=== PATIENT | female | born 1935 | race Caucasian/White ===

== ENCOUNTER 2019-10-05 12:16 | Emergency (ER) | payer MEDICARE, SELFPAY ==
[2019-10-05 12:17] VITALS: BP 154/134; PULSE 102; RESP 22; TEMP 36.7; O2SAT 97; BMI 22.1
--- NOTE | 2019-10-05 12:47 | CT_ITS ---
STUDY: CT BRAIN WITHOUT CONTRAST REASON FOR EXAM: Female, 84 years old. FALL THIS AM/STRUCK HEAD/CONFUSION/LT EYE BRUISING RADIATION DOSAGE (If Supplied By Facility): CTDIvol = ( 44.99 ) mGy, DLP = ( 812.98 ) mGycm TECHNIQUE: Transaxial CT imaging of the brain was performed without administration of intravenous contrast material. Individualized dose optimization techniques were used for this CT. COMPARISON: No relevant priors. FINDINGS: Normal soft tissue structures. Normal calvarium. There is mild cerebral atrophy with widening of the extra-axial spaces and ventricular dilatation. There are areas of decreased attenuation within the white matter tracts of the supratentorial brain, consistent with microvascular disease changes. There are small punctate calcifications of the basal ganglia which are seen in the aging brain as a normal variant. Normal brainstem. Normal cerebellum. There is no intracranial hemorrhage. There are no findings of an acute ischemic infarction. There is atherosclerotic plaque formation of the vertebral arteries and cavernous portions of the internal carotid arteries bilaterally. Normal visualized paranasal sinuses. CT/Brain/Head without Contrast IMPRESSION: Chronic involutional changes of the brain. Electronically Signed: Major Munoz, at 13:37 EDT , Service support ,
[2019-10-05 12:56] VITALS: BP 153/111
--- NOTE | 2019-10-05 13:10 | RAD_ITS ---
STUDY: X-RAY - RIGHT HAND REASON FOR EXAM: Female, 84 years old. PT FELL THIS AM. STRUCK HEAD. BRUISING OVER LEFT EYE. SKIN TEARS TO ANTERIOR RIGHT HAND AND AGUIRRE. PER [facility]CF, SOME CONFUSION, PT UNABLE TO HOLD FINGERS IN POSITION FOR LATERAL PROJECTION TECHNIQUE: 3 view(s) of the hand. COMPARISON: None. FINDINGS: Normal radiocarpal articulation. Normal distal radioulnar joint. Normal visualized carpal bones. Normal carpal articulations Normal carpometacarpal articulation of the thumb. Normal second through fifth carpometacarpal joints. The mineralization of the metacarpal bones. Normal metacarpophalangeal joint of the thumb. Normal interphalangeal joint of the thumb. Normal proximal and distal phalanges of the thumb. Normal metacarpophalangeal joints of the second through fifth fingers. There is diffuse articular joint space narrowing of the proximal and distal interphalangeal joints of the second through fifth fingers, but without erosive changes or periarticular soft tissue swelling. Normal phalanges of the second through fifth fingers. The soft tissue structures are unremarkable. RAD/Hand Min 3 Views IMPRESSION: Degenerative joint disease of the hand, as described above. Electronically Signed: Major Munoz, at 13:49 EDT , Service support ,
[2019-10-05 13:31] LABS: Prothrombin Time (Protime)PT. 47.3 SECONDS (11.7-14.9)
[2019-10-05 13:32] LABS: Anion Gap 7 (5-15); BUN 10 mg/dL (7-18); BUN/Creat Ratio 13.3 RATIO (10-20); Calcium,Total 9.7 mg/dL (8.5-10.1); Chloride 103 mmol/L (98-107); Creatinine, Serum 0.75 mg/dL (0.55-1.02); EST Glomerular Filtration Rate 78 mL/min (>60); Est Glom Filt Rate - Afr Amer 94 mL/min (>60); Glucose 156 mg/dL (74-106); Potassium 4.1 mmol/L (3.5-5.1); Sodium Level 136 mmol/L (136-145)
[2019-10-05 13:36] LABS: International Normalized Ratio 5.1
--- NOTE | 2019-10-05 14:04 | ED.DCSUM_ITS ---
- ER Visit Summary Date of Service: 10/05/19 Chief Complaint: Fall History of Present Illness: The patient is a [address] Jose Tavares. She is on Coumadin for a DVT. She reports that this morning she had slippery shoes on and tripped while going to get my walker. She did hit her head. She did h ave a loss of consciousness. She denies any neck, back, shoulder, wrist, or hip pain. She does have a skin tear to her right hand that she complains of mild pain there. She says her tetanus is up-to-date. Physical Examination: Vitals: Stable. Afebrile. Head: Hematoma to the upper left forehead. No laceration. Neck: No vertebral tenderness. Full ROM without difficulty. Cleared by NEXUS criteria. Back: No vertebral tenderness. General: A&O x 2. NAD. Cardiovascular exam: Regular rate and rhythm, no murmur, rub or gallop. Respiratory exam: Chest nontender. No crepitus. Clear to auscultation bilaterally. No wheezes or stridor. Abdominal exam: Soft, nontender, nondistended, normal bowel sounds. No pain in RUQ or LUQ specifically. No peritoneal signs. Extremity: 2 cm skin tear to the thenar eminence of her right hand. There is a very small skin tear to the lateral portion of her distal right forearm. No pain with range of motion. Test Results: INR is 5.1. Chem-7 shows a glucose 156. Clinical Impression(s) from Imaging Studies Brain CT 10/05/19 12:47 IMPRESSION: Chronic involutional changes of the brain. Electronically Signed: Major Munoz, at 13:37 EDT , Service support , Hand X-Ray 10/05/19 13:10 IMPRESSION: Degenerative joint disease of the hand, as described above. Electronically Signed: Major Munoz, at 13:49 EDT , Service support , Emergency Department Course and Treatment: Patient refused pain medications. She is resting comfortably. Patient was straight cathed for urine had greater than 800 cc of urine present. She reports that she used a cath herself. Treatment Plan: The patient was discussed with . she will be instructed to hold her Coumadin for 2 days. She will have a Doyle catheter placed prior to leaving. Return to the emergency department for any worsening symptoms. Disposition: To home in improved and stable condition. Impression: 1. Fall. 2. Supratherapeutic INR. 3. Skin tear right hand. 4. Urinary retention. 5. Hematoma to forehead. This note was generated with [employer] software. It may contain incorrect words, spelling, and punctuation that were not noted in review of the chart prior to signing <Kieran Valerio - Last Filed: 10/05/19 15:28> - ER Visit Summary Date of Service: 10/05/19 Patient was checked out to me to check urinalysis results. Urinalysis shows 0 white blood cells, 0 red blood cells, negative leukocyte, negative nitrite. She will be discharged back to the group home. Advised return to ED for worsening complaints. This note was generated with [employer] software. It may contain incorrect words, spelling, and punctuation that were not noted in review of the chart prior to signing <Mely Dumas - Last Filed: 10/05/19 16:14> ED Disposition <Kieran Valerio - Last Filed: 10/05/19 15:28> <Mely Dumas - Last Filed: 10/05/19 16:14> - Plan for ED Patient: Instructions: ED Retention Urinary Female Prescriptions: Cephalexin [Keflex] 500 mg PO Q12 #14 cap Prescription Printed Referrals: Jose Bashir MD [Primary Care Provider] - 3-5 Days Additional Instructions: Do not take your Coumadin for the next 2 days.
[2019-10-05 14:14] LABS: Absolute Lymphocyte Count 1.69 X10^3/uL (0.83-4.51); Absolute Neutrophil Count 2.6 X10^3/uL (2.0-7.7); Basophil# 0.05 X10^3/uL; Eosinophil# 0.17 X10^3/uL; Eosinophils% 3.5 % (0-5); Hematocrit 33.4 % (37-47); Hemoglobin 11.1 g/dL (12.0-15.0); Lymphocyte # 1.69 X10^3/ul (4.0); Lymphocyte % 34.6 % (19-41); Mean Corp Hgb Conc 33.2 g/dL (32-36); Mean Corpuscular Hgb 33.1 pg (27.0-32.0); Mean Corpuscular Volume 99.7 fL (81-99); Mean Platelet Vol. 11.9 fl (6.2-12.0); Monocyte# 0.38 X10^3/uL; Monocyte% 7.8 % (0-10); NRBC Flagged by Analyzer 0 % (0-5); Neutrophil # 2.59 X10^3/uL (2.7-7.7); Neutrophil % 52.9 % (47-70); Platelet Count 250 K/mm3 (150-450); RBC Distribution Width CV 13.5 % (11.6-14.6); RBC Distribution Width SD 49.5 fl (35.1-43.9); Red Blood Count 3.35 M/mm3 (4.2-5.4); White Blood Count 4.9 K/mm3 (4.4-11.0)
[2019-10-05 14:36] VITALS: BP 142/100; PULSE 90; RESP 18; O2SAT 99
[2019-10-05 14:38] LABS: Mucous, Urine 0 SEEN /hpf (<or=2+); Red Blood Cells-Urine 0 SEEN /hpf (0-5); White Blood Cells 0 SEEN /hpf (0-5)
[2019-10-05 14:58] LABS: Color, Urine Yellow (Yellow); Glucose, Dipstick Normal (Normal); Ketone-Dipstick Negative (Negative); Leukocyte Esterase-Dipstick Negative /ul (Negative); Nitrite-Dipstick Negative (Negative); Occult Blood-Urine Negative /ul (Negative); Protein-Dipstick Negative (Negative); Specific Gravity, Urine 1.015 (1.002-1.030); Urine Bilirubin Dipstick Negative (Negative); Urine Clarity Sl. Cloudy (Clear); Urine Urobilinogen Normal (Normal)
[2019-10-05 16:10] LABS: Bacteria 4+ /hpf (None Seen)
[2019-10-05 16:11] LABS: Squamous Epithelial Cells - UA 0-5 SEEN /hpf (5-10)
--- NOTE | 2019-10-05 16:22 | NURSING ---
CALLED PHYSICANS FOR TRANSPORT. ETA IS 90 MIN
[2019-10-05 16:33] VITALS: BP 138/97; PULSE 89; RESP 25; O2SAT 99
--- NOTE | 2019-10-05 16:38 | ED.RN ---
Report called to [facility], spoke with Cassidy. Updated on patients diagnosis, new orders, catheter, and to hold Coumadin for 2 days. also updated on ETA for patient getting back to their facility.
== END 2019-10-05 17:43 | disposition home or self-care (01) ==
PROVIDERS: Emergency Provider Emergency Medicine; PCP Family Medicine
DX: S00.83XA Contusion of other part of head, initial encounter (principal); S61.411A Laceration without foreign body of right hand, initial encounter; R33.9 Retention of urine, unspecified; R79.1 Abnormal coagulation profile; E11.9 Type 2 diabetes mellitus without complications; I10 Essential (primary) hypertension; Z86.718 Personal history of other venous thrombosis and embolism; Z79.01 Long term (current) use of anticoagulants; Z79.4 Long term (current) use of insulin; Z79.899 Other long term (current) drug therapy; W01.0XXA Fall on same level from slipping, tripping and stumbling without subsequent striking against object, initial encounter; Y93.01 Activity, walking, marching and hiking; Y92.009 Unspecified place in unspecified non-institutional (private) residence as the place of occurrence of the external cause; Y99.8 Other external cause status
CPT/HCPCS: 51702; 70450; 73130; 80048; 81001; 85025; 85610; 99285; J7030; P9612; A4216

== ENCOUNTER → 2019-10-14 15:05 | Outpatient (CLI) | payer MEDICARE, SELFPAY ==
[2019-10-05 12:17] VITALS: BMI 22.1
--- NOTE | 2019-10-14 15:13 | CT_ITS ---
STUDY: CT RIGHT KNEE WITHOUT CONTRAST REASON FOR EXAM: Female, 84 years old. Fall. Pain. RADIATION DOSAGE (If Supplied By Facility): CTDIvol = ( 15.35 ) mGy, DLP = ( 626.24 ) mGycm TECHNIQUE: Transaxial images were obtained through the right knee and without intravenous contrast. Sagittal and coronal images were reconstructed. Individualized dose optimization techniques were used for this CT. COMPARISON: None. FINDINGS: There is a moderate-sized hemorrhagic joint effusion. There is a minimally depressed fracture of the medial tibial plateau. The remainder the visualized osseous structures are intact. There is no dislocation. There are vascular calcifications noted. CT/Extremity Lower without Contra IMPRESSION: Minimally depressed fracture of the medial tibial plateau. Moderate sized hemorrhagic joint effusion. Electronically Signed: Agustín Tomas, at 15:43 EDT Tel , Service support ,
== END ==
PROVIDERS: PCP Family Medicine; Referring Provider Physician Assistant; Visit Provider Physician Assistant
DX: M25.561 Pain in right knee (principal); M17.11 Unilateral primary osteoarthritis, right knee; S80.01XA Contusion of right knee, initial encounter
CPT/HCPCS: 73700

== ENCOUNTER 2020-02-28 06:26 | Emergency (ER) | payer MEDICARE, SELFPAY ==
--- NOTE | 2020-02-28 | CT_ITS ---
HISTORY: FALL HITTING HEAD THIS AM ADDITIONAL HISTORY: None provided. COMPARISON: 10/05/2019 EXAMINATION/TECHNIQUE: CT Head or Brain W/O Contrast Injection. Axial, coronal and sagittal images. Number of images including paperwork: 245. A radiation dose optimization technique was used for this scan. FINDINGS: BRAIN: No acute hemorrhage or mass. No definite acute infarct; MRI more sensitive. White matter hypodensity is nonspecific but most commonly seen with chronic ischemic changes. Generalized atrophy. VENTRICULAR SYSTEM: No hydrocephalus. PARANASAL SINUSES AND MASTOIDS: No air-fluid level in the imaged extent. Minimal mucosal thickening. ORBITS: Unremarkable imaged extent. SKELETON AND SOFT TISSUES: Calvarium intact. Left frontal scalp hematoma. ASPECTS score: Not applicable. CT/Brain/Head without Contrast IMPRESSION: No acute intracranial abnormality. Chronic involutional and white matter changes. Individualized dose optimization techniques were used for this CT. at 0728 Reported and signed by: Angela Curtis MD Electronically Signed: Angela Curtis MD at 7:28 EST Tel , Service support ,
[2020-02-28 06:27] VITALS: PULSE 83; RESP 16; TEMP 36.6; O2SAT 97; BMI 24.4
[2020-02-28 06:33] VITALS: BP 164/81
--- NOTE | 2020-02-28 06:53 | ED.DCSUM_ITS ---
- ER Visit Summary Date of Service: 02/28/20 Chief Complaint: Fall History of Present Illness: The patient is a 84 F presenting after fall. Patient states her walker caught under her recliner and she lost her balance and fell. She hit her head on the floor. She denies loss of consciousness. She is on Coumadin. She was able to get up after the fall and ambulate. She denies other complaints. Physical Examination: Vitals are stable. Patient is afebrile. Alert no acute distress. HEENT exam left scalp hematoma Neck is nontender Lungs are clear and equal bilaterally. Heart is regular rate and rhythm. Abdomen is soft nontender nondistended. Extremities are unremarkable. Skin is warm and dry. No focal neurologic deficit. Remainder of exam is unremarkable. Emergency Department Course and Treatment: CT head is pending at this time and will be checked out to the oncoming physician. Disposition: pending Impression: Closed head injury, mechanical fall This note was generated with [employer] dictation software. It may contain incorrect words, spelling, and punctuation that were not noted in review of the chart prior to signing ED Disposition - Plan for ED Patient: Referrals: Jose Bashir MD [Primary Care Provider] -
[2020-02-28 07:16] LABS: International Normalized Ratio 3.4; Prothrombin Time (Protime)PT. 33.9 SECONDS (11.7-14.9)
[2020-02-28 07:48] VITALS: BP 164/78; PULSE 77; RESP 16; O2SAT 98
== END 2020-02-28 08:03 | disposition intermediate care facility (04) ==
PROVIDERS: Emergency Provider Emergency Medicine; PCP Family Medicine
DX: S00.03XA Contusion of scalp, initial encounter (principal); Z79.01 Long term (current) use of anticoagulants; W18.30XA Fall on same level, unspecified, initial encounter; Y93.89 Activity, other specified; Y92.008 Other place in unspecified non-institutional (private) residence as the place of occurrence of the external cause; Y99.8 Other external cause status
CPT/HCPCS: 70450; 85610; 99284

== ENCOUNTER → 2020-06-07 15:58 | Outpatient (CLI) | payer MEDICARE, SELFPAY ==
--- NOTE | 2020-06-07 16:00 | MRI_ITS ---
STUDY: MRI LUMBAR SPINE WITHOUT CONTRAST REASON FOR EXAM: Female, 85 years old. Chronic back pain, compression fx TECHNIQUE: Standardized fat and water weighted pulse sequences were obtained in the sagittal and axial planes. COMPARISON: X-ray 04/04/2020 FINDINGS: T12-L1: Mild broad disc protrusion produces mild spinal stenosis and moderate bilateral neural foraminal stenosis. Normal lumbar lordosis. Mild dextroscoliosis of the upper lumbar spine and mild levoscoliosis of lower lumbar spine. Normal conus medullaris that terminates at the L1. Subacute moderate compression fractures of L1 and L2 with mild marrow edema. 2 mm retropulsion of the superior endplate of L1 and L2 into the spinal canal producing mild spinal stenosis. L1-2: Mild bilobed disc protrusion produces mild spinal stenosis and mild bilateral neural foraminal stenosis. L2-3: Mild bilateral facet hypertrophy and moderate ligament flavum hypertrophy. 5 mm retrolisthesis of L2 on L3 with a mild bilobed disc protrusion produces severe spinal stenosis with severe bilateral lateral recess stenosis with effacement of the L3 nerve roots bilaterally and moderate bilateral neural foraminal stenosis. L3-4: Severe bilateral facet hypertrophy and moderate ligament flavum hypertrophy. 5 mm of anterolisthesis of L3 on L4 with a mild bilobed disc protrusion produces moderate spinal stenosis and moderate bilateral neural foraminal stenosis. L4-5: Mild bilateral facet hypertrophy and moderate ligament flavum hypertrophy. Moderate broad disc protrusion produces moderate spinal stenosis and moderate bilateral neural foraminal stenosis. L5-S1: Moderate bilateral facet hypertrophy and ligament flavum hypertrophy. 2 mm of anterolisthesis of L5 on S1 with a mild broad disc protrusion produces mild spinal stenosis and moderate bilateral neural foraminal stenosis. Normal visualized sacral ala. 4 cm abdominal aortic aneurysm. MRI/Spine Lumbar (Routine) IMPRESSION: 1. Subacute moderate compression fractures of L1 and L2 with marrow edema and 2 mm retropulsion of the superior endplate of L1 and L2 into the spinal canal producing mild spinal stenosis. 2. Mild S-shaped scoliosis with diffuse degenerative disc disease as described above. 3. 4 cm abdominal aortic aneurysm. Electronically Signed: Hardeep Ponce MD at 18:12 EDT Tel , Service support ,
== END ==
LOC: MRI 16:00
PROVIDERS: PCP Family Medicine; Referring Provider Orthopaedic Surgery; Visit Provider Orthopaedic Surgery
DX: M47.816 Spondylosis without myelopathy or radiculopathy, lumbar region (principal)
CPT/HCPCS: 72148

== ENCOUNTER 2020-10-03 07:01 | Day surgery (SDC) | payer MEDICARE, MEDICAID, SELFPAY ==
[2020-08-10 15:14] VITALS: BMI 24.4
[2020-10-03 07:35] VITALS: BP 171/84; PULSE 75; RESP 16; TEMP 36.2; O2SAT 98; BMI 27.0
[2020-10-03] MEDS: Vancomycin IV 1,000 MG/200 ML BAG 200 MG IV (07:44)
[2020-10-03] MEDS: Lactated Ringers 1,000 ML 100 ML IV (07:44)
--- NOTE | 2020-10-03 08:37 | PCM.OPRPT ---
Problems Associated Problem List Diagnoses (1) Urinary retention: (2) Neurogenic bladder: Report of Operation Date of Procedure: 10/03/20 Pre-Operative Diagnosis: Urinary retention, neurogenic bladder Post-Operative Diagnosis: Same Surgery/Procedure Performed:: InterStim stage I Surgeon: Kelly Cornell Type of Anesthesia: MAC Description of Procedure: The patient is an 85-year-old female with urinary retention who was evaluated in the office with cystoscopy and urodynamics and found to have a neurogenic bladder. She now presents for InterStim trial. Informed consent was obtained. The patient was taken to the operating room and placed in a prone position on the operating room table. She was appropriately secured to the table and padded in dependent areas. Anesthesia monitored the head, neck, airway, IV access and vital signs throughout the case. Once anesthesia was appropriately administered, the patient was prepped and draped in usual sterile fashion. Using fluoroscopy, the S3 foramen was identified. The skin overlying this area was infiltrated with lidocaine, and the left S3 foramen was intubated with a needle. With stimulation there was good pro response. The stylette was removed and the guidewire was placed. A skin incision was made around the guidewire. The dilator was then passed followed by the lead, using the curved stylette. Once the lead was in appropriate position as seen on fluoroscopy, the dilator sheath was pulled back exposing the lead. All 4 portions of the lead were tested and responded. At this time the pocket site was selected and infiltrated with lidocaine. A skin incision was made with a knife, the pocket was enlarged using blunt dissection. Hemostasis was achieved with the Bovie. The lead was tunneled into the pocket site using the tunneling device. The tunneling device was then used to bring the lead extension from the contralateral position into the pocket site. The lead was secured into the boot after being dried appropriately and secured using a torque wrench. The lead extension was wrapped and secured using a Prolene stitch and this was all buried into the pocket. The pocket was closed using 3-0 Vicryl followed by 4-0 subcuticular suturing. Skin glue was then applied. The patient's battery was then attached and the dressing was applied. The patient was then awakened and taken to the recovery room in good condition. There were no complications during this procedure. Grafts/Implants Used: [employer] InterStim lead and lead extension Complications None Admit VTE Documentation VTE Present on Admission: No VTE Mechan Device Prophylaxis: None VTE Pharm Prophylaxis ordered?: Yes
[2020-10-03 08:41] LABS: Bedside Glucose 133 mg/dL (70-110)
--- NOTE | 2020-10-03 08:42 | DCINST_ITS ---
Discharge Instructions Diet Discharge Diet: No restrictions Activity May resume sexual activity in: 3 weeks Dressing / Incision Call your doctor if your incision/area has: Continuous Slow Oozing, Sudden Increased Bleeding, Increased Pain/ Swelling, Increased Redness, Foul Smelling Discharge and Swelling at the incision site Call your doctor if you observe: Fever of 101 or Higher, Inability to urinate, Inability to have a bowel movement and Uncontrolled pain Suture Line Care: Avoid Pulling/Pushing and Avoid Pinching/Bending Change Dressing in: do not change dressing Remove Dressing in: do not remove dressing Cleanse incision/area with: Keep Dressing Clean & Dry Follow Up Care Please Follow Up With: Kelly Cornell MD When: in 5-7 days Test Results: Test results from this visit will be discussed in further detail at your follow-up appointment, if applicable. Discharge Plan Admission Attending Provider: Kelly Cornell Primary Care Provider: Jose Bashir Discharge Orders/Prescriptions Prescriptions: New oxycodone-acetaminophen [oxycodone-acetaminophen] 1 TABLET tablet 1 tab PO Q8H PRN PRN (Reason: Pain) 7 Days Qty: 10 RF: 0 cephalexin [cephalexin] 500 MG capsule 500 mg PO Q12 3 Days Qty: 6 RF: 0 Continued amlodipine 5 mg tablet 10 mg PO DAILY RF: 0 metformin 500 MG tablet 500 mg PO BID RF: 0 levetiracetam 500 MG tablet 500 mg PO BID RF: 0 sertraline 100 MG tablet 75 mg PO QHS RF: 0 warfarin 2.5 MG tablet 6 mg PO SUMOTUTHFR RF: 0 warfarin 3 MG tablet 5 mg PO WESA RF: 0 cyanocobalamin (vitamin B-12) 500 MCG tablet 500 mcg PO DAILY@0800 RF: 0 ferrous sulfate 325 MG tablet 325 mg PO DAILY RF: 0 omeprazole 20 MG capsule 20 mg PO DAILY RF: 0 mirtazapine 15 MG tablet 7.5 mg PO QHS RF: 0 geriatric [id number] 1 EACH tablet 1 ea PO DAILY RF: 0 cholecalciferol (vitamin D3) 1,000 UNIT tablet 1,000 unit PO DAILY RF: 0 biotin 5 MG tablet 5 mg PO DAILY RF: 0 insulin glargine 100 UNITS/ML insulin pen 10 units subcut QHS RF: 0 calcium carbonate-vitamin D3 1 EACH tablet,chewable 1 ea PO DAILY RF: 0 acetaminophen 500 mg Tablet 1,000 mg PO TID RF: 0 Referrals / Follow Up: Jose Bashir MD [Primary Care Provider] - Disposition Disposition (needs filled in before D/C Order can be placed): [facility] Facility
--- NOTE | 2020-10-03 09:37 | RAD_ITS ---
STUDY: X-RAY - PELVIS REASON FOR EXAM: Female, 85 years old. INTERSTIM THERAPY 1 TECHNIQUE: One view of the pelvis was obtained. COMPARISON: None. FINDINGS: The patient is status post InterStim electrode placement. The tip of the electrode is seen along the posterior aspect of the right hemipelvis. RAD/Pelvis 1 or 2 Views IMPRESSION: The tip of the InterStim electrode is along the posterior aspect of the right hemipelvis. Electronically Signed: Major Munoz MD at 14:08 EDT , Service support ,
[2020-10-03] MEDS: Lidocaine 1% /Epi 1:100 (20ml) 20 ML Vial (09:54)
[2020-10-03 10:35] VITALS: BP 131/70; BP 171/84; PULSE 95; RESP 16; TEMP 36.7; O2SAT 100
[2020-10-03 10:40] VITALS: BP 160/91; BP 171/84; PULSE 92; RESP 16; O2SAT 97
[2020-10-03 10:45] VITALS: BP 142/103; BP 171/84; PULSE 93; RESP 16; O2SAT 97
[2020-10-03 11:01] VITALS: BP 138/58; BP 171/84; PULSE 92; RESP 16; TEMP 36.6; O2SAT 97
--- NOTE | 2020-10-03 11:10 | SUR.PHASEI ---
LY CATH REMOVED PER ORDER, CLEAR YELLOW URINE WITH FEW SHREDS NOTED, PERICARE PROVIDED, DEPENDS PLACED.
[2020-10-03 12:18] VITALS: BP 163/94; BP 171/84; PULSE 96; RESP 16; TEMP 36.4; O2SAT 96
== END 2020-10-03 12:20 | disposition skilled nursing facility (03) ==
LOC: SDC 07:04 → AC 07:05
PROVIDERS: PCP Family Medicine; Referring Provider Urology; Visit Provider Urology
PROC: (CPT 64561; principal; 2020-10-03 07:20)
DX: R33.9 Retention of urine, unspecified (principal); N31.9 Neuromuscular dysfunction of bladder, unspecified; N39.41 Urge incontinence; N39.0 Urinary tract infection, site not specified; E11.9 Type 2 diabetes mellitus without complications; I10 Essential (primary) hypertension; Z85.3 Personal history of malignant neoplasm of breast
CPT/HCPCS: 00400; 64561; 72170; 76000; 82962; J7120; J2405

== ENCOUNTER 2020-10-18 07:40 | Day surgery (SDC) | payer MEDICARE, MEDICAID, SELFPAY ==
[2020-08-10 15:14] VITALS: BMI 24.4
[2020-10-18] MEDS: Vancomycin IV 1,000 MG/200 ML BAG 200 MG IV (07:00)
[2020-10-18] MEDS: Lactated Ringers 1,000 ML 100 ML IV (08:15)
[2020-10-18 08:25] LABS: INR Fingerstick 1.1; Prothrombin Time Fingerstick 12.8 SEC (11.9-14.4)
[2020-10-18 08:40] VITALS: BP 156/83; PULSE 75; RESP 16; TEMP 36.6; O2SAT 98; BMI 26.8
--- NOTE | 2020-10-18 09:00 | OP.PCM_ITS ---
Problems Associated Problem List Diagnoses (1) Neurogenic bladder: (2) Urinary retention: Report of Operation Date of Procedure: 10/18/20 Pre-Operative Diagnosis: Neurogenic bladder, urinary retention Post-Operative Diagnosis: Same Surgery/Procedure Performed:: InterStim stage II Surgeon: Kelly Cornell Type of Anesthesia: MAC Description of Procedure: The patient is a an 85-year-old female who is now able to successfully void after a stage I InterStim procedure. She now presents for implantation of her battery. Informed consent was obtained. The patient was taken to the operating room and placed in a prone position on the operating room table. Dependent portions of her body were appropriately padded and she was secured to the table. The dressing overlying her lower back was carefully removed including the adhesive. The lead extension was grasped with hemostats and the excess lead extension and temporary battery were removed with heavy scissors. Anesthesia monitored the head, neck, airway, IV access and vital signs throughout the case. Once anesthesia was appropriate ministered, the patient was prepped and draped in usual sterile fashion. At this time the incision of the pocket site was carefully infiltrated with lidocaine. The incision was opened cautiously using hemostats and Metzenbaums. Once the boot w as identified it was brought into the operative field. The lead was removed from the boot using the torque wrench. The lead extension was then cut with heavy scissors and removed from the operative field the pocket site was enlarged using Bovie cautery and blunt dissection. Once appropriate hemostasis was obtained, the lead was dried and inserted into the IPG and secured with a torque wrench. The IPG was then placed into the pocket site. It was tested for impedances and found to be in good working order. At this time the pocket was closed using 3-0 interrupted Vicryl followed by 4-0 subcuticular Vicryl and skin glue. Once the glue was dry, the patient was awakened and taken to the recovery room in good condition. There were no complications during this procedure. Grafts/Implants Used: [employer] InterStim battery Complications None Admit VTE Documentation VTE Present on Admission: Yes VTE Mechan Device Prophylaxis: SCD's VTE Pharm Prophylaxis ordered?: No Reason prophylaxis not ordered:: Treatment Not Indicated
--- NOTE | 2020-10-18 09:03 | PCM.DC ---
Discharge Instructions Diet Discharge Diet: No restrictions Activity Discharge Activity: Return to Normal Activity and May Shower Additional Activity Instructions:: No tub bathing for 2 weeks Dressing / Incision Call your doctor if your incision/area has: Continuous Slow Oozing, Sudden Increased Bleeding, Increased Pain/ Swelling, Increased Redness, Foul Smelling Discharge and Swelling at the incision site Call your doctor if you observe: Fever of 101 or Higher, Inability to urinate, Inability to have a bowel movement and Uncontrolled pain Suture Line Care: Avoid Pulling/Pushing and Avoid Pinching/Bending Follow Up Care Please Follow Up With: Kelly Cornell MD When: In 2 weeks, call the office for appointment Test Results: Test results from this visit will be discussed in further detail at your follow-up appointment, if applicable. Discharge Plan Admission Attending Provider: Kelly Cornell Primary Care Provider: Jose Bashir Discharge Orders/Prescriptions Prescriptions: New oxycodone-acetaminophen [Percocet] 5-325 mg tablet 1 tab PO Q8H PRN (Reason: pain) 7 Days Qty: 10 RF: 0 cephalexin [cephalexin] 500 MG capsule 500 mg PO Q12 3 Days Qty: 6 RF: 0 Continued amlodipine 5 mg tablet 10 mg PO DAILY RF: 0 metformin 500 MG tablet 500 mg PO BID RF: 0 levetiracetam 500 MG tablet 500 mg PO BID RF: 0 sertraline 100 MG tablet 75 mg PO QHS RF: 0 warfarin 2.5 MG tablet 6 mg PO SUMOTUTHFR RF: 0 warfarin 3 MG tablet 5 mg PO WESA RF: 0 cyanocobalamin (vitamin B-12) 500 MCG tablet 500 mcg PO DAILY@0800 RF: 0 ferrous sulfate 325 MG tablet 325 mg PO DAILY RF: 0 omeprazole 20 MG capsule 20 mg PO DAILY RF: 0 mirtazapine 15 MG tablet 7.5 mg PO QHS RF: 0 geriatric [id number]-sghw 1 EACH tablet 1 ea PO DAILY RF: 0 cholecalciferol (vitamin D3) 1,000 UNIT tablet 1,000 unit PO DAILY RF: 0 biotin 5 MG tablet 5 mg PO DAILY RF: 0 insulin glargine 100 UNITS/ML insulin pen 10 units subcut QHS RF: 0 calcium carbonate-vitamin D3 1 EACH tablet,chewable 1 ea PO DAILY RF: 0 acetaminophen 500 mg Tablet 1,000 mg PO TID RF: 0 oxycodone-acetaminophen 1 TABLET tablet 1 tab PO Q8H PRN PRN (Reason: Pain) 7 Days Qty: 10 RF: 0 cephalexin 500 MG capsule 500 mg PO Q12 3 Days Qty: 6 RF: 0 Referrals / Follow Up: Jose Bashir MD [Primary Care Provider] - Disposition Disposition (needs filled in before D/C Order can be placed): Home, Self Care
[2020-10-18 09:10] LABS: Bedside Glucose 157 mg/dL (70-110)
[2020-10-18] MEDS: Lidocaine 1% /Epi 1:100 (20ml) 20 ML Vial (09:33)
[2020-10-18 09:53] VITALS: BP 139/92; BP 156/83; PULSE 86; RESP 16; TEMP 36.1; O2SAT 98
[2020-10-18 10:00] VITALS: BP 156/83; BP 170/94; PULSE 83; RESP 16; O2SAT 100
[2020-10-18 10:06] VITALS: BP 153/92; BP 156/83; PULSE 85; RESP 16; O2SAT 100
[2020-10-18 10:21] VITALS: BP 151/94; BP 156/83; PULSE 84; RESP 16; TEMP 36.1; O2SAT 95
[2020-10-18 11:30] VITALS: BP 154/86; BP 156/83; PULSE 82; RESP 16; TEMP 36.4; O2SAT 96
== END 2020-10-18 10:30 | disposition home or self-care (01) ==
LOC: SDC 07:42 → AC 07:45
PROVIDERS: PCP Family Medicine; Visit Provider Urology
PROC: (CPT 64590; principal; 2020-10-18 09:05)
DX: N31.9 Neuromuscular dysfunction of bladder, unspecified (principal); R33.9 Retention of urine, unspecified; M19.90 Unspecified osteoarthritis, unspecified site; E11.51 Type 2 diabetes mellitus with diabetic peripheral angiopathy without gangrene; E11.59 Type 2 diabetes mellitus with other circulatory complications; I11.9 Hypertensive heart disease without heart failure; K21.9 Gastro-esophageal reflux disease without esophagitis; F33.9 Major depressive disorder, recurrent, unspecified; Z87.891 Personal history of nicotine dependence; Z79.4 Long term (current) use of insulin; Z79.01 Long term (current) use of anticoagulants; Z79.899 Other long term (current) drug therapy
CPT/HCPCS: 00300; 64590; 36416; 82962; 85610; J7120; C1767; J2405

== ENCOUNTER 2022-02-20 20:58 | Emergency (ER) | payer MEDICARE, MEDICAID, SELFPAY ==
[2022-02-20 20:59] VITALS: BP 127/73; PULSE 92; RESP 18; TEMP 36.2; O2SAT 96; BMI 25.6
--- NOTE | 2022-02-20 22:51 | RAD_ITS ---
INDICATION: abd pain EXAMINATION/TECHNIQUE: X-RAY -XR Abdomen Series W/ Chest 1 View AP supine and upright views of the abdomen, and upright view of the chest. 4 images. COMPARISON: FINDINGS: The bowel gas pattern is normal. There is no bowel obstruction or free intraperitoneal air. No abnormal mass or calcification is seen. Device overlying the left iliac wing with electrode presacral. Degenerative changes of the lumbar spine. No infiltrates. Prominent central pulmonary vessels. Atherosclerotic aorta. Surgical clips left axilla. RAD/Acute Abdomen Inc Chest IMPRESSION: No bowel obstruction. Electronically Signed: Ruba Park MD at 23:33 EST ,
--- NOTE | 2022-02-20 23:00 | EX.ED.DYSGE1 ---
HPI History of Present Illness Chief Complaint: Constipation Narrative Narrative: Patient is 86-year-old female from the [facility] with past medical history of lumbar compression fracture and neurogenic bladder. According to the [place] staff patient has not had a bowel movement for 2 days and was on the toilet trying to have a bowel movement this evening when she had a reported syncopal event. Upon arrival to the ER the patient is awake and at her baseline mental status. She states that she is here for her rectal problem and otherwise has no complaints. [facility] Medical History Arthritis Breast CA Diabetes Former smoker Hearing impairment History of edema Hypertension Injury of back Neurogenic bladder Post-menopausal Seizures Urinary retention Uses walker Wears dentures Wears glasses Home Medications biotin 5 mg tablet 5 mg PO DAILY supplement 10/05/19 [History Last Taken Unknown] calcium carbonate 600 mg-vitamin D3 10 mcg (400 unit) chewable tablet 1 ea PO DAILY supplement 10/05/19 [History Last Taken Unknown] cholecalciferol (vitamin D3) 25 mcg (1,000 unit) tablet 1,000 unit PO DAILY supplement 10/05/19 [History Last Taken Unknown] cyanocobalamin (vitamin B-12) 500 mcg tablet 500 mcg PO DAILY@0800 supplement 10/05/19 [History Last Taken Unknown] ferrous sulfate 325 mg (65 mg iron) tablet 325 mg PO DAILY supplement 10/05/19 [History Last Taken Unknown] geriatric [id number]-[id number]-[id number] 1 ea PO DAILY supplement 10/05/19 [History Last Taken Unknown] insulin glargine 100 unit/mL (3 mL) subcutaneous pen 10 units subcut QHS 10/05/19 [History Last Taken Unknown] levetiracetam 500 mg tablet 500 mg PO BID seizure 10/05/19 [History Last Taken Unknown] metformin 500 mg tablet 500 mg PO BID 10/05/19 [History Last Taken Unknown] mirtazapine 15 mg tablet 7.5 mg PO QHS depression 10/05/19 [History Last Taken Unknown] omeprazole 20 mg capsule,delayed release 20 mg PO DAILY GERD 10/05/19 [History Last Taken Unknown] sertraline 100 mg tablet 75 mg PO QHS depression 10/05/19 [History Last Taken Unknown] warfarin 2.5 mg tablet 6 mg PO SUMOTUTHFR 10/05/19 [History Last Taken Unknown] warfarin 3 mg tablet 5 mg PO WESA 10/05/19 [History Last Taken Unknown] amlodipine 5 mg tablet 10 mg PO DAILY bp 04/04/20 [History Last Taken Unknown] acetaminophen 500 mg tablet 1,000 mg PO TID pain 09/29/20 [History Last Taken Unknown] cephalexin 500 mg capsule 500 mg PO Q12 post-operative 3 days #6 CAPSULES 10/03/20 [Rx Last Taken Unknown] oxycodone-acetaminophen 5 mg-325 mg tablet 1 tab PO Q8H PRN PRN Pain 7 days #10 tabs 10/03/20 [Rx Last Taken Unknown] cephalexin 500 mg capsule 500 mg PO Q12 post-operative 3 days #6 CAPSULES 10/18/20 [Rx Last Taken Unknown] oxycodone-acetaminophen 5 mg-325 mg tablet (Percocet) 1 tab PO Q8H PRN pain 7 days #10 tabs 10/18/20 [Rx Last Taken Unknown] Allergy/AdvReac Type Severity Reaction Status Date / Time doxycycline [From Vibramycin] Allergy PT UNSURE Verified 02/20/22 21:07 OF REACTION gabapentin Allergy PT UNSURE Verified 02/20/22 21:07 OF REACTION Surgical History (Updated 09/29/20 @ 12:19 by Kalee Mcgrath) History of left knee replacement History of left mastectomy Social History (Updated 04/04/20 @ 11:[address] Leo Penn, DO) Smoking Status: Former smoker ROS ROS ED Constitutional Constitutional ED: Denies chills or fever(s) ENT ENT ED: Denies sore throat Cardiovascular Cardiovascular: Denies chest pain Respiratory/Chest Respiratory/Chest: Denies cough or dyspnea Gastrointestinal Gastrointestinal: Reports constipation; Denies abdominal pain, diarrhea, nausea or vomiting Genitourinary Genitourinary ED: Denies dysuria Musculoskeletal Musculoskeletal: Denies myalgias Integumentary Denies rash Neurologic Neurologic: Denies headache(s) Hematologic/Lymphatic Hematologic/Lymphatic: Reports easy bleeding and easy bruising EXAM Physical Exam Const Vital Signs: 02/20/22 20:59 Temperature 97.1 F L Temperature Source Temporal Pulse Rate 92 Respiratory Rate 18 Blood Pressure 127/73 H Blood Pressure Mean 91 Pulse Ox 96 Oxygen Delivery Method Room Air Positive well nourished and well developed General Appearance ED: well developed HEENT Reports moist mucous membranes Eyes PERRL and EOMs intact bilaterally Neck supple Resp normal respiratory effort and clear to auscultation bilaterally Cardio regular rate and regular rhythm Rate: other Other Details: Radial pulses are plus 2 out of 4 bilaterally are equal and symmetric GI normal to inspection, nondistended, normoactive bowel sounds, non-tender and non-distended GI Narrative: No voluntary guarding or rigidity. No pulsatile mass or fluid wave. No increased tympany noted Auscultation: normoactive bowel sounds Palpation: soft Narrative: Patient has nonthrombosed nonbleeding external hemorrhoids. Rectal tone is normal. Patient has a scant amount of soft stool within the rectal vault. Stool is brown in color Please note patient has on depends and there is a large bowel movement present upon initial evaluation Extremity normal to inspection Neuro oriented x3 and CN's II-XII intact bilaterally Sensorium / Orientation: alert Psych Psych Narrative: Patient has a flat affect Skin no rashes or lesions noted MDM MDM MDM Narrative Medical decision making narrative: Patient arrived to the ER with stable vitals and normal neurologic exam. Her abdomen is soft and nonsurgical and on initial evaluation she has had a large bowel movement spontaneously. As nursing reports the patient had a syncopal event with trying to have a bowel movement and at this time has no complaints normal vitals and normal neurologic exam I do not feel there is need to work this syncopal event up. Also as she is already had a bowel movement I do not feel there is need for intervention with suppositories or enemas. I did elect to perform an acute abdominal series to ensure there is no air-fluid levels to suggest obstruction. The x-ray did not reveal any acute findings and on reevaluation the patient is resting comfortably with a soft nonsurgical abdomen and maintaining her baseline mental status. Therefore she is safe for discharge as she has had a bowel movement and there are no signs of obstructive Radiography Diagnostic Testing: Clinical Impression(s) from Imaging Studies Acute Abdomen Series 02/20/22 22:51 IMPRESSION: No bowel obstruction. Electronically Signed: Ruba Park MD at 23:33 EST Reading Location ID and State: [address] [place] [address] Tel , Service support , At your series of 1 view chest as interpreted by the emergency medicine physician reveals a nonobstructive bowel gas pattern without free air and chest x-ray reveals no acute infiltrate pneumothorax or pleural effusion Discharge Plan Triage Chief Complaint: Constipation ED Provider: Tenzin Horn Dx/Rx/DC Orders Clinical Impression: Acute constipation, Neurogenic bladder, Diabetes Instructions: ED Constipation (Adult) Prescriptions: No Action amlodipine 5 mg tablet 10 mg PO DAILY metformin 500 MG tablet 500 mg PO BID levetiracetam 500 MG tablet 500 mg PO BID sertraline 100 MG tablet 75 mg PO QHS warfarin 2.5 MG tablet 6 mg PO SUMOTUTHFR Label Comments: stopped per Dr Cornell; last dose on 10/12/20 warfarin 3 MG tablet 5 mg PO WESA Label Comments: stopped per Dr Cornell; last dose on 10/12/20 cyanocobalamin (vitamin B-12) 500 MCG tablet 500 mcg PO DAILY@0800 ferrous sulfate 325 MG tablet 325 mg PO DAILY omeprazole 20 MG capsule 20 mg PO DAILY mirtazapine 15 MG tablet 7.5 mg PO QHS geriatric vijapfol-ldmh-cqpe 1 EACH tablet 1 ea PO DAILY cholecalciferol (vitamin D3) 1,000 UNIT tablet 1,000 unit PO DAILY biotin 5 MG tablet 5 mg PO DAILY insulin glargine 100 UNITS/ML insulin pen 10 units subcut QHS calcium carbonate-vitamin D3 1 EACH tablet,chewable 1 ea PO DAILY acetaminophen 500 mg Tablet 1,000 mg PO TID oxycodone-acetaminophen 1 TABLET tablet 1 tab PO Q8H PRN PRN (Reason: Pain) 7 Days Qty: 10 0RF cephalexin 500 MG capsule 500 mg PO Q12 3 Days Qty: 6 0RF oxycodone-acetaminophen [Percocet] 5-325 mg tablet 1 tab PO Q8H PRN (Reason: pain) 7 Days Qty: 10 0RF cephalexin [cephalexin] 500 MG capsule 500 mg PO Q12 3 Days Qty: 6 0RF Primary Care Provider: Jose Bashir Referrals: Jose Bashir MD [Primary Care Provider] - Disposition Disposition: Home, Self Care
--- NOTE | 2022-02-20 23:40 | ED.RN ---
[facility] 0700 for morning crew to take [facility] back to [facility].
--- NOTE | 2022-02-20 23:41 | ED.RN ---
Called [facility] and they are updated with patient and aware of [facility] for 7am
[2022-02-21 01:02] VITALS: RESP 16; O2SAT 97
== END 2022-02-21 07:05 | disposition skilled nursing facility (03) ==
PROVIDERS: Emergency Provider Emergency Medicine; PCP Family Medicine; Visit Provider Emergency Medicine
DX: K59.00 Constipation, unspecified (principal); E11.9 Type 2 diabetes mellitus without complications; I10 Essential (primary) hypertension; N31.9 Neuromuscular dysfunction of bladder, unspecified; Z87.891 Personal history of nicotine dependence
CPT/HCPCS: 74022; 99284

== ENCOUNTER → 2023-04-25 | Outpatient (CLI) | payer MEDICARE, MEDICAID, SELFPAY ==
--- NOTE | 2023-04-25 13:31 | MRI_ITS ---
EXAM: MR LUMBAR SPINE WITHOUT INTRAVENOUS CONTRAST CLINICAL INDICATION: Compression fracture -- Include T12, low back pain after fall 6-8 months TECHNIQUE: Multiplanar and multisequence MR images of the lumbar spine without intravenous contrast. COMPARISON: MR Lumbar Spine dated 06/07/2020 FINDINGS: VERTEBRAE: Stable compression deformities of the L1 and L2 vertebral bodies. Interval development of T12 vertebral body compression associated with superior endplate bone marrow edema suggestive of acute/subacute compression fracture. There is approximately 40% loss in vertebral body height. Persistent mild retrolisthesis of L2 on L3 and mild anterior listhesis of L3 on L4. SPINAL CORD: Normal. Normal position and signal intensity of the conus medullaris. SOFT TISSUES: Normal. VASCULATURE: Stable 4.2 cm abdominal aortic aneurysm. DISCS/SPINAL CANAL/NEURAL FORAMINA: T11-T12: Mild retropulsion of the superior posterior portion of the T12 vertebral body resulting in compression of the thecal sac. AP dimension of the thecal sac measuring 9 mm. No disc herniation. Narrowing of the left neural foramen related to bony hypertrophy. T12-L1: Persistent posterior osteophytosis and ligamentous hypertrophy resulting in mild to moderate spinal stenosis. AP dimension of the spinal canal measuring 6.8 mm. Bilateral neural foraminal narrowing related to bony hypertrophy. L1-L2: No disc herniation. Mild posterior osteophytosis and ligamentous hypertrophy noted with mild compression of the thecal sac. Mild bilateral neural foraminal narrowing. L2-L3: Prominent disc space narrowing. The mild retrolisthesis, ligamentous hypertrophy and facet arthropathy again noted resulting in moderate spinal stenosis. Prominent bilateral neural foraminal narrowing. L3-L4: Moderate disc space narrowing. Disc osteophyte complex, facet arthropathy and ligamentous hypertrophy results in moderate spinal stenosis and moderate to severe bilateral neural foraminal narrowing. L4-L5: Prominent disc space narrowing. Broad-based disc protrusion, ligamentous and moderate to severe neural foraminal or hypertrophy and facet arthropathy results in moderate to severe spinal and bilateral neural foraminal stenoses. L5-S1: Prominent disc space narrowing associated with Modic type II endplate changes. No disc herniation. No spinal stenosis. Facet arthropathy results in moderate bilateral neural foraminal narrowing. MRI/Spine Lumbar (Routine) IMPRESSION: 1. Interval development of acute/subacute compression fracture of T12 with approximately 40% loss in vertebral body height. 2. Extensive multilevel disc degeneration, ligamentous hypertrophy and facet arthropathy with significant multilevel spinal and neural foraminal stenoses not significantly changed from prior exam. 3. Chronic stable fractures of L1 and L2 vertebral bodies. 4. Stable 4.2 cm abdominal aortic aneurysm. Electronically Signed: Lázaro Jolly MD at 16:55 EDT ,
== END | disposition home or self-care (01) ==
LOC: MRI 13:30
PROVIDERS: PCP Family Medicine; Referring Provider Orthopaedic Surgery; Visit Provider Orthopaedic Surgery
DX: S22.080A Wedge compression fracture of T11-T12 vertebra, initial encounter for closed fracture (principal); S32.010A Wedge compression fracture of first lumbar vertebra, initial encounter for closed fracture; S32.020A Wedge compression fracture of second lumbar vertebra, initial encounter for closed fracture
CPT/HCPCS: 72148

== ENCOUNTER → 2023-10-03 | Outpatient (CLI) | payer MEDICARE, MEDICAID, SELFPAY ==
--- NOTE | 2023-10-03 14:54 | CT_ITS ---
INDICATION: Thoracic fracture EXAMINATION: CT THORACIC SPINE - CT Spine Thoracic W/ Contrast Injection TECHNIQUE: Helically acquired images were obtained of the thoracic spine. 2D reformats were reviewed. A radiation dose optimization technique was used for this scan. IV Contrast dosage and agent: None. COMPARISON: None. FINDINGS: VERTEBRAE: There is evidence of a compression fracture of the superior endplate of the T12 and L1 vertebrae. Osteopenia. VERTEBRAL ALIGNMENT: Unremarkable. Increased kyphosis. DISCS: Multilevel disc space narrowing. Dextroconvex scoliosis. CT/Spine Thoracic WITH Contrast IMPRESSION: Compression fractures of the T12 and L1 vertebrae. Electronically Signed: Major Munoz MD at 8:01 EDT ,
[2023-10-03 21:31] LABS: CREATININE FINGERSTICK < 1.0 mg/dL (0.55-1.02); EGFR FINGERSTICK > 60.0000 mL/min (>60)
== END | disposition home or self-care (01) ==
LOC: CT 14:52
PROVIDERS: PCP Family Medicine; Referring Provider Internal Medicine Gastroenterology; Visit Provider Internal Medicine Gastroenterology
DX: S22.000A Wedge compression fracture of unspecified thoracic vertebra, initial encounter for closed fracture (principal); M48.061 Spinal stenosis, lumbar region without neurogenic claudication; X58.XXXA Exposure to other specified factors, initial encounter
CPT/HCPCS: 72129; Q9967

== ENCOUNTER → 2023-10-16 | Outpatient (CLI) | payer MEDICARE, MEDICAID, SELFPAY ==
--- NOTE | 2023-10-16 08:42 | US_ITS ---
STUDY: ABDOMINAL ULTRASOUND - RIGHT UPPER QUADRANT REASON FOR VISIT: Female, 88 years old abdominal pain -- RUQ TECHNIQUE: Ultrasound evaluation of the right upper quadrant was performed with real-time and static kilpatrick-scale imaging. TECHNICAL QUALITY: Adequate. COMPARISON: None. FINDINGS: Liver: The liver measures 17.3 cm. There is normal echogenicity of the liver. The bile ducts are within normal limits. There is hepatic color flow. The direction of portal flow is hepatopetal. There are 2 cysts measuring 2 x 2.2 x 1.5 cm and 1.6 x 1.3 x 0.9 cm Gallbladder: Normal distended gallbladder. The gallbladder wall measures 2.4 mm. There is a negative sonographic Soto''s sign. There is no pericholecystic fluid. There is mild biliary sludge and tiny stones Common Bile Duct (C.B.D.): The common bile duct measures 4 mm. Pancreas: Normal size of the head, body and tail of the pancreas. There is normal echogenicity of the pancreas. There is no demonstrated pancreatic mass or cyst. Right Kidney: Normal size of the right kidney. The right kidney measures 12.4 x 5.4 x 2.44 cm. There are increased cortical echoes consistent with nonspecific renal parenchymal disease there is a cyst measuring 1.7 x 1.3 cm. There is no right hydronephrosis. Incidental finding of abdominal aortic aneurysm measuring 4 x 3.9 cm US/Abdomen Limited IMPRESSION: Mild biliary sludge and cholelithiasis without sonographic evidence for acute cholecystitis. HIDA scan would be helpful for further evaluation if clinically warranted Incidental finding of chronic renal parenchymal disease and abdominal aortic aneurysm measuring approximately 4 x 3.9 cm Electronically Signed: Espinoza Saucedo MD at 16:20 EDT ,
== END | disposition home or self-care (01) ==
LOC: OPUS 08:35 → US 08:37
PROVIDERS: PCP Family Medicine; Referring Provider Internal Medicine Gastroenterology; Visit Provider Internal Medicine Gastroenterology
DX: R10.11 Right upper quadrant pain (principal)
CPT/HCPCS: 76705

== ENCOUNTER 2023-11-04 10:04 | Observation (INO) | payer MEDICARE, MEDICAID, SELFPAY ==
[2023-11-04] VITALS (8 sets, daily range): BP systolic 134–195; BP diastolic 57–113; PULSE 46–120; RESP 16–22; TEMP 35.8–36.7; O2SAT 96–98; BMI 24.8
--- NOTE | 2023-11-04 10:22 | ED.RN ---
ATTEMPTED TO CALL [facility] TO GET REPORT/PATIENTS BASELINE. CHARGE NURSE TO ASSESS AND DO [facility] FOR SECOND SET OF EYES
--- NOTE | 2023-11-04 11:31 | EKG12_ITS ---
Test Reason : NEURO Blood Pressure : / mmHG Vent. Rate : 106 BPM Atrial Rate : 000 BPM P-R Int : 000 ms QRS Dur : 116 ms QT Int : 344 ms P-R-T Axes : 000 -38 080 degrees QTc Int : 456 ms Atrial fibrillation with rapid ventricular response Left axis deviation Minimal voltage criteria for LVH, may be normal variant ( [place] product ) Nonspecific ST and T wave abnormality Abnormal ECG Confirmed by Jair Silva ([id number]), state editor ROSIE FELDMAN ([id number]) on 11/05/2023 10:07:05 AM Referred By: Confirmed By:Jair Silva
--- NOTE | 2023-11-04 11:31 | CT_ITS ---
STUDY: CTA HEAD AND NECK WITH CONTRAST REASON FOR EXAM: Female, 88 years old. Stroke RADIATION DOSAGE (If Supplied By Facility): CTDIvol = ( 28.58 ) mGy, DLP = ( 1414.97 ) mGycm TECHNIQUE: CT angiography was performed with a multi-detector CT scanner. Data acquisition was obtained from the skull base through the vertex following intravenous administration of IV 100mL [id number]-[id number]. MIP images were reconstructed from the axial data set. Post-processing of the angiographic images was performed, with multiplanar reformation and 3D reconstruction. Individualized dose optimization techniques were used for this CT. COMPARISON: No relevant priors. FINDINGS: Normal bilateral petrous carotid arteries. There is calcified plaque formation of the right cavernous carotid artery, without a cross-sectional luminal stenosis. There is calcified plaque formation of the left cavernous carotid artery, without a cross-sectional luminal stenosis. Normal right A1 segments of the anterior cerebral artery. Normal left A1 segments of the anterior cerebral artery. Normal intact anterior communicating artery (ACOM). Normal bilateral A2 segments of the anterior cerebral arteries. Normal right M1 and M2 segments of the middle cerebral arteries, with a normal M1 bifurcation. Normal left M1 and M2 segments of the middle cerebral arteries, with a normal M1 bifurcation. Normal right posterior communicating artery (PCOM). Normal left posterior communicating artery (PCOM). Normal bilateral vertebral arteries. Normal basilar artery with a normal basilar bifurcation. The visualized bilateral superior cerebellar (SCA) arteries are normal. Normal bilateral P1, P2 and visualized P3 segments of the posterior cerebral arteries. There is no demonstrated aneurysm of the [place]. Cerebral atrophy. Decreased attenuation in the deep white matter in keeping with chronic small vessel disease. Heterogeneous appearance of the thyroid more prominent on the right side. AORTIC ARCH: There is atherosclerotic calcific plaque formation of the aortic arch and great vessels arising from the aortic arch, without a hemodynamically significant stenosis. There is a normal origin of the brachiocephalic, left common carotid, and left subclavian arteries. Atherosclerotic plaque formation at the origin of the left common carotid artery left subclavian artery. RIGHT CAROTID ARTERIES: Normal right common carotid artery (CCA). Normal right common carotid bulb. There is extensive atherosclerotic plaque formation of the origin of the right internal carotid artery with an estimated stenosis of greater than 70%. Normal visualized cervical portion of the right internal carotid artery. Normal origin of the right external carotid artery (ECA). LEFT CAROTID ARTERIES: Normal left common carotid artery (CCA). Normal left common carotid bulb. There is moderate atherosclerotic plaque formation of the origin of the left internal carotid artery with an estimated stenosis of 50-69% stenosis. Normal visualized cervical portion of the left internal carotid artery. Normal origin of the left external carotid artery (ECA). VERTEBRAL ARTERIES: Nonstenotic calcific plaques of the left vertebral artery. CT/CTA Head AND Neck W/ Contrast IMPRESSION: Cerebral atrophy. Calcific plaque at the origin of the right internal carotid artery causing greater than 70% stenosis. Calcific plaque at the origin of the left internal carotid artery causing between 50 and 60% narrowing. Electronically Signed: Major Munoz MD at 13:25 EDT ,
--- NOTE | 2023-11-04 11:43 | ED.VIS.STROK ---
HPI History of Present Illness Chief Complaint: Neuro S/Sx Informant: patient, spouse/S.O., EMS and SNF Narrative Narrative: 88-year-old female presenting to the emergency room with altered mental status. Family states that on Saturday they received a phone call from nurses aide at the patient's SNF. Apparently the patient was complaining that her vision was blurry. Son said he talked to his mom. She typically wears glasses but only for reading. They received another phone call today that the SNF was concerned that the patient may have had a stroke. They stated that the patient was spelling words and was complaining of blurry vision. Patient does not really know what happened this morning or why she is here. Family notes that she continues to spell some words instead of saying them. Patient denies any loss in vision of any of her quadrants. She notes that words seem blurry but is not abnormal for her. She denies any headache or eye pain. She denies any arm or leg symptoms. Patient notes that she has been getting back injections for back pain due to a fall and family notes that she was diagnosed with a compression fracture. No reported fevers vomiting or diarrhea. There is been no reported recent falls. No history of atrial fibrillation or blood clotting disorders. [facility] Medical History PVD (peripheral vascular disease) Osteoarthritis History of pulmonary embolism Chronic back pain Anemia Depression Neurogenic bladder Urinary retention Hearing impairment Wears glasses Wears dentures Breast CA Diabetes Arthritis Post-menopausal Injury of back Former smoker History of edema Hypertension Seizures Uses walker Home Medications ?Medication ?Instructions ?Recorded ?Last Taken ?Type biotin 5 mg tablet 5 mg PO DAILY supplement 10/05/19 Unknown History calcium carbonate 600 mg-vitamin 1 ea PO DAILY supplement 10/05/19 Unknown History D3 10 mcg (400 unit) chewable tablet cholecalciferol (vitamin D3) 25 1,000 unit PO DAILY supplement 10/05/19 Unknown History mcg (1,000 unit) tablet cyanocobalamin (vitamin B-12) 500 500 mcg PO DAILY@0800 supplement 10/05/19 Unknown History mcg tablet ferrous sulfate 325 mg (65 mg 325 mg PO DAILY supplement 10/05/19 Unknown History iron) tablet geriatric [id number] 1 ea PO DAILY supplement 10/05/19 Unknown History insulin glargine 100 unit/mL (3 10 units subcut QHS 10/05/19 Unknown History mL) subcutaneous pen levetiracetam 500 mg tablet 500 mg PO BID seizure 10/05/19 Unknown History metformin 500 mg tablet 500 mg PO BID 10/05/19 Unknown History mirtazapine 15 mg tablet 7.5 mg PO QHS depression 10/05/19 Unknown History omeprazole 20 mg capsule,delayed 20 mg PO DAILY GERD 10/05/19 Unknown History release amlodipine 5 mg tablet 10 mg PO DAILY bp 04/04/20 Unknown History acetaminophen 500 mg tablet 1,000 mg PO TID pain 09/29/20 Unknown History tramadol 50 mg tablet 50 mg PO Q8H PRN 04/12/23 Unknown History dicyclomine 10 mg capsule 10 mg PO Q6H PRN pain #60 caps 09/10/23 Unknown Rx losartan 100 mg tablet (Cozaar) 100 mg PO DAILY 09/10/23 Unknown History tamsulosin 0.4 mg capsule 0.4 mg PO QHS 09/10/23 Unknown History dextrose 40 % oral gel (Glucose 15 g PO Q15M PRN 10/16/23 Unknown History Gel) glucagon 1 mg solution for 1 mg subcut Q20M PRN 10/16/23 Unknown History injection hydralazine 25 mg tablet 25 mg PO TID 10/16/23 Unknown History lidocaine 4 % topical patch 1 patch topical QDAY PRN 10/16/23 Unknown History loperamide 2 mg capsule 2 mg PO Q6H PRN 10/16/23 Unknown History (Anti-Diarrheal (loperamide)) Allergy/AdvReac Type Severity Reaction Status Date / Time doxycycline (From Vibramycin) Allergy PT UNSURE Verified 10/28/23 08:58 OF REACTION gabapentin Allergy PT UNSURE Verified 10/28/23 08:58 OF REACTION Surgical History History of left knee replacement History of left mastectomy Social History Smoking Status: Former smoker ROS ROS ED Constitutional Constitutional ED: Denies chills, fever(s) or weight loss Eyes Eyes: Reports blurry vision; Denies diplopia ENT ENT ED: Denies ear pain, rhinorrhea or sore throat Cardiovascular Cardiovascular: Denies chest pain, orthopnea, palpitations or racing heartbeat Respiratory/Chest Respiratory/Chest: Denies cough, dyspnea or orthopnea Gastrointestinal Gastrointestinal: Denies abdominal pain, diarrhea, nausea or vomiting Genitourinary Genitourinary ED: Denies dysuria, hematuria or urinary frequency Musculoskeletal Musculoskeletal: Reports back pain; Denies arthralgias, myalgias or neck pain Integumentary Denies abscess or rash Neurologic Neurologic: Reports other Details: Spelling words ; Denies headache(s), paresthesias or weakness Psychiatric Psychiatric: Denies anxiety, depression, suicidal ideation or suicidal thoughts Endocrine Endocrinology: Denies polydipsia, polyphagia or polyuria Allergic/Immunologic Allergic/Immunologic ED: Denies mouth swelling, tongue swelling or urticaria EXAM Physical Exam Const Vital Signs: 11/04/23 10:05 11/04/23 10:11 11/04/23 12:04 Temperature 97.7 F L Temperature Source Oral Pulse Rate 92 98 Respiratory Rate 17 18 Blood Pressure 165/57 H 144/90 H Blood Pressure Mean 93 108 Pulse Ox 98 98 96 Oxygen Delivery Method Room Air Room Air Room Air Positive well nourished and well developed General Appearance ED: well developed and NAD HEENT Reports normocephalic, head/scalp atraumatic and moist mucous membranes Eyes PERRL and EOMs intact bilaterally Eyes Narrative: No appreciable vision loss. Patient is able to read a stroke card from distance of about 3-1/2 feet. Neck no lymphadenopathy, supple and no JVD Resp normal respiratory effort and clear to auscultation bilaterally Cardio no murmurs Rhythm: abnormal rhythm irregularly irregular GI normal to inspection, nondistended, normoactive bowel sounds and non-tender Palpation: soft Back/Spine no CVA tenderness and normal ROM Back/Spine Narrative: Patch on back (?Lidoderm) Extremity normal to inspection General Extremety ED: Negative for edema General Extremity: Negative for edema Neuro oriented x3 and CN's II-XII intact bilaterally Neuro Narrative: Patient is hard of hearing. She occasionally spells random words like [id number] and [id number] Chrissie Coma Scale: document GCS findings Spontaneous Obeys Commands Oriented 15 Sensorium / Orientation: alert Motor Exam: strength 5/5 throughout Psych mental status grossly normal Mood & Affect: Negative for depressed or tearful Skin no rashes or lesions noted and no wounds MDM MDM MDM Narrative Medical decision making narrative: Differential diagnosis includes stroke TIA cardiac dysrhythmias dehydration anemia UTI PRESS intracranial hypertension intracranial mass White count 4.9 hemoglobin 9.1 the last hemoglobin on record that I have access to immediately was resolved years ago. Platelet count is 255. INR 1.4 PTT 33.1 sodium 127 BUN 22 creatinine 0.84 urinalysis with white blood cell count 5-10 3+ bacteria negative nitrates. She denies any urinary symptoms sent for culture. My independent interpretation of the chest x-ray is no acute process. CT/CTA head and neck was obtained. EKG demonstrates atrial fibrillation. Patient and her family do not know of a history of A-fib. Patient is otherwise rate controlled at this time. She does not appear symptomatic from a cardiac standpoint with this rhythm. I will speak with the hospitalist regarding admission for possible MRI for further evaluation. History & Record Review Discussion w/independent historian: EMS personnel, Patient and Family Lab Data Attestation: I reviewed the patient's lab results. Labs: Laboratory Results - last 24 hr 11/04/23 11/04/23 11:35 11:42 WBC 4.9 RBC 2.48 L Hgb 9.1 L Hct 26.7 L MCV 107.7 H MCH 36.7 H MCHC 34.1 RDW Std Deviation 49.6 H RDW Coeff of Mariaelena 12.6 Plt Count 255 MPV 11.5 Immature Gran % (Auto) 0.400 Neut % (Auto) 52.7 Lymph % (Auto) 38.2 [place] % (Auto) 6.5 Eos % (Auto) 1.0 Baso % (Auto) 1.2 H Absolute Neuts (auto) 2.6 Absolute Lymphs (auto) 1.87 Nucleated RBC % 0 PT 16.6 H INR 1.4 APTT 33.1 Sodium 127 L Potassium 4.3 Chloride 93 L Carbon Dioxide 25.0 Anion Gap 9 BUN 22 H Creatinine 0.84 Estim Creat Clear Calc 40.74 Est GFR (MDRD) Af Amer 83 Est GFR (MDRD) Non-Af 68 BUN/Creatinine Ratio 26.3 H Glucose 220 H Calcium 10.1 Magnesium 1.5 L Total Bilirubin 0.50 Direct Bilirubin 0.19 AST 11 L ALT 18 Alkaline Phosphatase 60 Troponin I High Sens 8 Total Protein 7.8 Albumin 3.9 Globulin 3.9 TSH 1.280 Urine Color Yellow Urine Clarity Cloudy Urine pH 6.0 Ur Specific [place] 1.010 Urine Protein 100 H Urine Glucose (UA) Normal Urine Ketones Negative Urine Occult Blood 10 H Urine Nitrite Negative Urine Bilirubin Negative Urine Urobilinogen Normal Ur Leukocyte Esterase 100 H Urine RBC 0 SEEN Urine WBC 5-10 SEEN Ur Squamous Epith Cells 0 SEEN Urine Bacteria 3+ Urine Mucus 1+ Radiography Diagnostic Testing: Clinical Impression(s) from Imaging Studies Head/Neck CTA 11/04/23 11:31 IMPRESSION: Cerebral atrophy. Calcific plaque at the origin of the right internal carotid artery causing greater than 70% stenosis. Calcific plaque at the origin of the left internal carotid artery causing between 50 and 60% narrowing. Electronically Signed: Major Munoz MD at 13:25 EDT , EKG Initial EKG: Attestation: I personally reviewed and interpreted this EKG as follows: Comments: Atrial fibrillation with RVR ventricular rate of 106 bpm Management Discussion w/another healthcare provider: Hospitalist Discharge Plan Dx/Rx/DC Orders Clinical Impression: AMS (altered mental status), Atrial fibrillation, new onset, Hyponatremia, Anemia Disposition Disposition: Acute Care [facility]
[2023-11-04 11:46] LABS: Absolute Lymphocyte Count 1.87 X10^3/uL (0.83-4.51); Absolute Neutrophil Count 2.6 X10^3/uL (2.0-7.7); Basophil# 0.06 X10^3/uL; Basophil% 1.2 % (0-1); Eosinophil# 0.05 X10^3/uL; Hematocrit 26.7 % (37-47); Hemoglobin 9.1 g/dL (12.0-15.0); Lymphocyte # 1.87 X10^3/ul (0.83-4.51); Lymphocyte % 38.2 % (19-41); Mean Corp Hgb Conc 34.1 g/dL (32-36); Mean Corpuscular Hgb 36.7 pg (27.0-32.0); Mean Corpuscular Volume 107.7 fL (81-99); Mean Platelet Vol. 11.5 fl (6.2-12.0); Monocyte# 0.32 X10^3/uL; Monocyte% 6.5 % (0-10); NRBC Flagged by Analyzer 0 % (0-5); Neutrophil # 2.57 X10^3/uL (2.7-7.7); Neutrophil % 52.7 % (47-70); Platelet Count 255 K/mm3 (150-450); RBC Distribution Width CV 12.6 % (11.6-14.6); RBC Distribution Width SD 49.6 fl (35.1-43.9); Red Blood Count 2.48 M/mm3 (4.2-5.4); White Blood Count 4.9 K/mm3 (4.4-11.0)
[2023-11-04 11:58] LABS: Red Blood Cells-Urine 0 SEEN /hpf (0-5); Squamous Epithelial Cells - UA 0 SEEN /hpf (5-10)
[2023-11-04 12:02] LABS: Color, Urine Yellow (Yellow); Glucose, Dipstick Normal (Normal); Ketone-Dipstick Negative (Negative); Leukocyte Esterase-Dipstick 100 /ul (Negative); Nitrite-Dipstick Negative (Negative); Occult Blood-Urine 10 /ul (Negative); Protein-Dipstick 100 mg/dl (Negative); Urine Bilirubin Dipstick Negative (Negative); Urine Clarity Cloudy (Clear); Urine Urobilinogen Normal (Normal)
[2023-11-04 12:05] LABS: AST(SGOT) 11 U/L (15-37); Alanine Aminotransfer ALT/SGPT 18 U/L (13-56); Albumin, Serum 3.9 g/dL (3.2-5.0); Alkaline Phosphatase 60 U/L (45-117); Anion Gap 9 (5-15); BUN 22 mg/dL (7-18); BUN/Creat Ratio 26.3 RATIO (10-20); Bilirubin, Direct 0.19 mg/dL (0.00-0.30); Calcium,Total 10.1 mg/dL (8.5-10.1); Chloride 93 mmol/L (98-107); Creatinine, Serum 0.84 mg/dL (0.55-1.02); EST Glomerular Filtration Rate 68 mL/min (>60); Est Glom Filt Rate - Afr Amer 83 mL/min (>60); Estimated Creatinine Clearance 40.74 ml/min; Globulin 3.9 g/dL (2.2-4.2); Glucose 220 mg/dL (74-106); Potassium 4.3 mmol/L (3.5-5.1); Protein, Total 7.8 g/dL (6.4-8.2); Sodium Level 127 mmol/L (136-145); Troponin-I HS 8 pg/mL (3.0-54.0)
[2023-11-04 12:06] LABS: International Normalized Ratio 1.4; Prothrombin Time (Protime)PT. 16.6 SECONDS (11.7-14.9)
[2023-11-04 12:07] LABS: Partial Thromboplast Time 33.1 Seconds (24.1-36.2)
[2023-11-04 12:38] LABS: Bacteria 3+ /hpf (None Seen); White Blood Cells 5-10 SEEN /hpf (0-5)
[2023-11-04 12:40] LABS: Mucous, Urine 1+ /hpf (<or=2+)
[2023-11-04 12:42] LABS: Magnesium 1.5 mg/dL (1.6-2.6)
--- NOTE | 2023-11-04 13:00 | RAD_ITS ---
STUDY: X-RAY CHEST REASON FOR EXAM: Female, 88 years old. Hypertension TECHNIQUE: Single AP portable view of the chest. COMPARISON: None. FINDINGS: Surgical clips are seen in the left axilla. The lungs are clear and expanded. Scattered calcified granulomas. There is no demonstrated pleural abnormality. There is borderline cardiomegaly. Normal mediastinum and bang. Normal visualized pulmonary arteries. There is atherosclerotic calcification of the aortic arch with tortuosity. There are diffuse degenerative changes of the visualized thoracic spine. Normal visualized ribs, clavicles, and shoulders. There is no demonstrated abnormality of the visualized soft tissue structures of the upper abdomen. RAD/Chest 1 View (Portable) IMPRESSION: No acute abnormality is seen. Borderline cardiomegaly. Electronically Signed: Major Munoz MD at 13:20 EDT ,
--- NOTE | 2023-11-04 14:31 | PCM.HP.STD ---
[facility] - General General Date of Admission: 11/04/23 Date of Service: 11/04/23 Chief Complaint: Blurry vision, spelling out words HPI Balta VEGA, is a 88-year-old female history of diabetes, depression, seizures, hypertension who presented to [facility] ED 11/04/2023 with complaints of blurry vision and some confusion. Patient is also been spelling words instead of saying them which was abnormal for her. In the ED pt vitally stable, she had a sodium of 127, mg of 1.5, UA with leuk esterase 100 bacteria 3+ blood 1+ mucus and only 5-10 white blood cells, CTA head and neck Calcific plaque at the origin of the right internal carotid artery causing greater than 70% stenosis and Calcific plaque at the origin of the left internal carotid artery causing between 50 and 60% narrowing. Given patient's neurologic symptoms hospitalist contacted for admission for stroke rule out. Patient evaluated at bedside, she is a poor historian and said she had a bowel movement BR O WN and was perseverating on needing cleaned up and wanting to get out of the present room she was in, had difficulty directing her in conversation and there seem to be some difficulty with her understanding directions. Knew she was in [place] but when asked the year she began spelling other words and when informed it was 2023 she reported that she was aware. Difficulty following commands but seemed more due to comprehension and execution then inability to do so. Patient denies current problems with her vision, had difficulty answering individual ROS but denied any other concerns at this time. [facility] Medical History PVD (peripheral vascular disease) Osteoarthritis History of pulmonary embolism Chronic back pain Anemia Depression Neurogenic bladder Urinary retention Hearing impairment Wears glasses Wears dentures Breast CA Diabetes Arthritis Post-menopausal Injury of back Former smoker History of edema Hypertension Seizures Uses walker Home Medications ?Medication ?Instructions ?Recorded ?Last Taken ?Type biotin 5 mg tablet 5 mg PO DAILY supplement 10/05/19 Unknown History calcium carbonate 600 mg-vitamin 1 ea PO DAILY supplement 10/05/19 Unknown History D3 10 mcg (400 unit) chewable tablet cholecalciferol (vitamin D3) 25 1,000 unit PO DAILY supplement 10/05/19 Unknown History mcg (1,000 unit) tablet cyanocobalamin (vitamin B-12) 500 500 mcg PO DAILY@0800 supplement 10/05/19 Unknown History mcg tablet ferrous sulfate 325 mg (65 mg 325 mg PO DAILY supplement 10/05/19 Unknown History iron) tablet geriatric [id number] 1 ea PO DAILY supplement 10/05/19 Unknown History insulin glargine 100 unit/mL (3 10 units subcut QHS 10/05/19 Unknown History mL) subcutaneous pen levetiracetam 500 mg tablet 500 mg PO BID seizure 10/05/19 Unknown History metformin 500 mg tablet 500 mg PO BID 10/05/19 Unknown History mirtazapine 15 mg tablet 7.5 mg PO QHS depression 10/05/19 Unknown History omeprazole 20 mg capsule,delayed 20 mg PO DAILY GERD 10/05/19 Unknown History release amlodipine 5 mg tablet 10 mg PO DAILY bp 04/04/20 Unknown History acetaminophen 500 mg tablet 1,000 mg PO TID pain 09/29/20 Unknown History tramadol 50 mg tablet 50 mg PO Q8H PRN 04/12/23 Unknown History dicyclomine 10 mg capsule 10 mg PO Q6H PRN pain #60 caps 09/10/23 Unknown Rx losartan 100 mg tablet (Cozaar) 100 mg PO DAILY 09/10/23 Unknown History tamsulosin 0.4 mg capsule 0.4 mg PO QHS 09/10/23 Unknown History dextrose 40 % oral gel (Glucose 15 g PO Q15M PRN 10/16/23 Unknown History Gel) glucagon 1 mg solution for 1 mg subcut Q20M PRN 10/16/23 Unknown History injection hydralazine 25 mg tablet 25 mg PO TID 10/16/23 Unknown History lidocaine 4 % topical patch 1 patch topical QDAY PRN 10/16/23 Unknown History loperamide 2 mg capsule 2 mg PO Q6H PRN 10/16/23 Unknown History (Anti-Diarrheal (loperamide)) Allergy/AdvReac Type Severity Reaction Status Date / Time doxycycline (From Vibramycin) Allergy PT UNSURE Verified 10/28/23 08:58 OF REACTION gabapentin Allergy PT UNSURE Verified 10/28/23 08:58 OF REACTION Surgical History History of left knee replacement History of left mastectomy Social History Smoking Status: Former smoker ROS ROS Narrative Unable to fully obtain ROS due to patient's difficulty answering questions directly Vital Signs Vital Signs Vital Signs: 11/04/23 10:05 11/04/23 10:11 11/04/23 12:04 Temperature 97.7 F L Temperature Source Oral Pulse Rate 92 98 Respiratory Rate 17 18 Blood Pressure 165/57 H 144/90 H Blood Pressure Mean 93 108 Pulse Ox 98 98 96 Oxygen Delivery Method Room Air Room Air Room Air 11/04/23 14:00 Temperature Temperature Source Pulse Rate 115 H Respiratory Rate 16 Blood Pressure 171/102 H Blood Pressure Mean 125 Pulse Ox Oxygen Delivery Method Weight Weight: 65.6 kg Body Mass Index (BMI) 24.8 Physical Exam Narrative General: Alert, knows where she is but had difficulty with the year when Spelling random words, no apparent distress HEENT: Atraumatic, normocephalic Eyes: Anicteric, normal conjunctiva, extraocular movements grossly intact but when asked to follow finger she had difficulty doing so but did not have any obvious deficits on regular exam when she was looking around Neck: Supple Respiratory: Clear to auscultation bilaterally, normal respiratory effort Cardiovascular: Irregularly irregular GI: Soft, nontender, nondistended Extremities: No edema Musculoskeletal: Moving all extremities, had difficulty cooperating with strength exam but did not appear to have different moving deficits from 1 side to the other Neuro: cranial nerves II through XII grossly intact Skin: Breakdown of toenails Psych: Attempted to be cooperative Results Lab / Micro Data 11/04/23 11:35 11/04/23 11:35 Labs: Laboratory Results - last 24 hr 11/04/23 11:35: WBC 4.9, RBC 2.48 L, Hgb 9.1 L, Hct 26.7 L, MCV 107.7 H, MCH 36.7 H, MCHC 34.1, RDW Std Deviation 49.6 H, RDW Coeff of Mariaelena 12.6, Plt Count 255, MPV 11.5, Immature Gran % (Auto) 0.400, Neut % (Auto) 52.7, Lymph % (Auto) 38.2, [place] % (Auto) 6.5, Eos % (Auto) 1.0, Baso % (Auto) 1.2 H, Absolute Neuts (auto) 2.6, Absolute Lymphs (auto) 1.87, Nucleated RBC % 0, PT 16.6 H, INR 1.4, APTT 33.1, Sodium 127 L, Potassium 4.3, Chloride 93 L, Carbon Dioxide 25.0, Anion Gap 9, BUN 22 H, Creatinine 0.84, Estim Creat Clear Calc 40.74, Est GFR (MDRD) Af Amer 83, Est GFR (MDRD) Non-Af 68, BUN/Creatinine Ratio 26.3 H, Glucose 220 H, Calcium 10.1, Magnesium 1.5 L, Total Bilirubin 0.50, Direct Bilirubin 0.19, AST 11 L, ALT 18, Alkaline Phosphatase 60, Troponin I High Sens 8, Total Protein 7.8, Albumin 3.9, Globulin 3.9, TSH 1.280 11/04/23 11:42: Urine Color Yellow, Urine Clarity Cloudy, Urine pH 6.0, Ur Specific [place] 1.010, Urine Protein 100 H, Urine Glucose (UA) Normal, Urine Ketones Negative, Urine Occult Blood 10 H, Urine Nitrite Negative, Urine Bilirubin Negative, Urine Urobilinogen Normal, Ur Leukocyte Esterase 100 H, Urine RBC 0 SEEN, Urine WBC 5-10 SEEN, Ur Squamous Epith Cells 0 SEEN, Urine Bacteria 3+, Urine Mucus 1+ Imaging Radiology Impression Head/Neck CTA 11/04/23 11:31 IMPRESSION: Cerebral atrophy. Calcific plaque at the origin of the right internal carotid artery causing greater than 70% stenosis. Calcific plaque at the origin of the left internal carotid artery causing between 50 and 60% narrowing. Electronically Signed: Major Munoz MD at 13:25 EDT , Assessment & Plan Assessment/Plan (1) AMS (altered mental status): PLAN: Plan #Blurry vision and abnormal speech pattern-TIA/CVA rule out -Admit to tele -CTA head and neck Calcific plaque at the origin of the right internal carotid artery causing greater than 70% stenosis and Calcific plaque at the origin of the left internal carotid artery causing between 50 and 60% narrowing. -MRI ordered -NIH q4hr -asa, statin -Echo w/ bubble study -PT/OT/Speech eval -Teleneuro consult ordered -TSH WNL, UA w/ 100 leuk esterase but only 5-10 WBC and no nitrite, 3+ bacteria but was 1+ mucus as well, unclear significance especially given normal white count and afebrile -Will follow urine culture, empiric antibiotics held unless culture positive or patient has signs or symptoms of infection -Hold BP medications to allow for permissive hypertension for 24 hours unless SBP greater than 220 or DBP greater than 120 or until stroke is ruled out #?New onset afib -A-fib seen on telemetry and EKG on presentation -Patient and family unaware of this diagnosis however review from long term shows that she is on Eliquis though unclear indication -Echocardiogram -Continue home Eliquis -Patient admitted to telemetry # Hyponatremia -Unclear chronicity -127 previous value 136 per labs 4 years ago -Given sodium and chloride are low with a elevated BUN suspect there may be component of dehydration -Gentle IV fluids and recheck #R internal carotid stenosis -CTA head and neck Calcific plaque at the origin of the right internal carotid artery causing greater than 70% stenosis -Will perform Doppler -Depending on Doppler results of carotids and any stroke or findings on MRI will likely determine need for vascular consult # Microcytic anemia -Hemoglobin 9.1 with an MCV of 107.7 -Last value available is from 2019 and was 11.1 with MCV of 99.7 on a results tab however oncology progress note from 10/28/2023 reviewed and patient had hemoglobin of 7.7 on 10/01 which is actually up from baseline, lending to possible hemoconcentration -Will check folate and B12 -No evidence of active bleeding -On review of oncology progress note 10/27 pt has been referred for IR consult for bone marrow bx and aspiration due to additional outpt leukopenia #hx seizures -Not presently having symptoms consistent with seizures -Continue Keppra #Type 2 diabetes mellitus -Glucose 220 in ED -Glucose checks and sliding scale insulin -Check A1c #HTN -SBP 144/90 -Hold antihypertensives above # History of depression -Continue mirtazapine # Compression fracture -Receiving back injections #Hypomagnesemia -Replace -Repeat in AM #GERD -Continue PPI #Hx neurogenic bladder -Per documentation InterStim therapy 10/08/[address] Cornell DVT ppx: SCDs Charges/Coding Visit Charges Inpatient E&M: 41286 Init Hosp L2
--- NOTE | 2023-11-04 14:41 | CDU_ITS ---
Reason For Study: Carotid stenosis Rt. Velocities/BP Lt. Velocities/BP Prox CCA 58.9/9.7 cm/sec. Prox CCA 69.6/14.6 cm/sec. Mid CCA 55.1/7.8 cm/sec. Mid CCA 76.2/14.6 cm/sec. Dist CCA 51.3/9.7 cm/sec. Dist CCA 68.5/12.4 cm/sec. Prox ICA 86.3/22 cm/sec. Prox ICA 101/18.8 cm/sec. Mid ICA 91.6/24.5 cm/sec. Mid ICA 90/18.8 cm/sec. Dist ICA 71.9/17.7 cm/sec. Dist ICA 75.6/21.7 cm/sec. Rt. ICA/CCA = 1.66. Lt. ICA/CCA = 1.33. Prox ECA 78.7 cm/sec. Prox ECA 97.1/3.6 cm/sec. Rt. Vert. 83.9/16.8 cm/sec. Lt. Vert. 82.6/18.2 cm/sec. Right Extracranial There is intimal thickening but no significant atherosclerotic plaque noted in the right common carotid artery. There is heterogeneous, irregular atherosclerotic plaque noted in the right internal carotid artery. There is intimal thickening but no significant atherosclerotic plaque noted in the right external carotid artery. Antegrade flow is noted in the right vertebral artery. Left Extracranial There is homogeneous, smooth atherosclerotic plaque noted in the left common carotid artery. There is heterogeneous, irregular atherosclerotic plaque noted in the left internal carotid artery. There is intimal thickening but no significant atherosclerotic plaque noted in the left external carotid artery. Antegrade flow is noted in the left vertebral artery. Procedure Carotid Duplex [id number]. This is a Carotid Duplex examination using B-mode, color flow and specral Doppler. Exam performed portable in patient room. VL/Carotid Duplex Ultrasound Interpretation Summary Mild (<50%) stenosis right extracranial internal carotid. Mild (<50%) stenosis left extracranial internal carotid. Patent and antegrade vertebrals bilaterally. Limited due to calcific shadowing bilateral. Ordering Physician: Amarilis Spence Referring Physician: Jose Bashir Performed By: Nelly Eugene RVT
--- NOTE | 2023-11-04 14:41 | ECHOD_ITS ---
Reason For Study: TIA/CVA Procedure This was a 2D Doppler, Color Flow transthoracic echocardiogram. Exam performed portable in patient room. Left Ventricle Normal LV size. Sigmoid septum. The estimated ejection fraction is 65 %. Diastolic function is indeterminate. No regional wall motion abnormalities noted. Right Ventricle Normal RV size. Normal systolic function. Atria The left atrium is mildly enlarged. Normal right atrium. No doppler evidence for ASD. Bubble contrast study negative for right to left interatrial shunt. Mitral Valve There is no mitral valve stenosis. Trivial mitral valve insufficiency. Tricuspid Valve There is no tricuspid stenosis. Trivial tricuspid valve insufficiency. Pulmonary artery systolic pressure is 30 mmHg. Aortic Valve Mild diffuse aortic valve thickening. Trisinus/trileaflet aortic valve. There is no aortic stenosis. No aortic valve insufficiency. Pulmonic Valve There is no pulmonic valvular stenosis. Trivial pulmonic valve insufficiency. Great Vessels Normal aortic root. Pericardium/Pleural No pericardial effusion. Medication Performed a rapid injection of agitated mix of 9 cc saline and 1cc air to assess for atrial septal defect. MMode/2D Measurements & Calculations LVIDd: 5.3 cm IVSd: 1.0 cm Ao root diam: 3.5 cm LVIDs: 4.2 cm LVPWd: 0.86 cm RVDd: 4.7 cm FS: 20.5 % LAV(MOD-sp4): 62.6 ml LA A4 area: 22.8 cm2 LA dimension(2D): 3.8 cm TAPSE: 1.9 cm RA A4 area: 12.2 cm2 Time Measurements MV dec time: 0.22 sec Doppler Measurements & Calculations MV E max merrick: 80.9 cm/sec Lat Peak E' Merrick: 9.4 cm/sec Med Peak E' Merrick: 5.3 cm/sec MV A max merrick: 105.8 cm/sec E/E' lat: 8.6 E/E' med: 15.1 MV E/A: 0.76 MV V2 max: 120.4 cm/sec MV P1/2t max merrick: 80.6 cm/sec Ao V2 max: 149.7 cm/sec MV max P.8 mmHg MV P1/2t: 65.8 msec Ao max P.0 mmHg MV V2 mean: 58.0 cm/sec MV dec slope: 358.6 cm/sec2 Ao V2 mean: 107.0 cm/sec MV mean P.6 mmHg Ao mean P.1 mmHg MV V2 VTI: 25.3 cm MVA(P1/2t): 3.3 cm2 Ao V2 VTI: 33.2 cm AV (velocity ratio): 0.53 LV V1 max: 85.8 cm/sec MR max merrick: 583.6 cm/sec PA V2 max: 103.2 cm/sec LV V1 max P.0 mmHg MR max P.2 mmHg PA max PG (full): 1.7 mmHg LV V1 mean P.7 mmHg MR mean merrick: 405.9 cm/sec LV V1 mean: 62.2 cm/sec MR mean P.4 mmHg LV V1 VTI: 17.7 cm MR VTI: 195.4 cm PI dec slope: 108.0 cm/sec2 TR max merrick: 246.4 cm/sec TR max P.3 mmHg ECHO/Echo Complete Interpretation Summary The estimated ejection fraction is 65 %. Trivial mitral valve insufficiency. The left atrium is mildly enlarged. Diastolic function is indeterminate. Ordering Physician: Amarilis Spence Performed By: Sam Fishman RCS
--- NOTE | 2023-11-04 15:28 | NURSING ---
PCU OBS JEAN STROKE R/O NEW ONSET AFIB
--- NOTE | 2023-11-04 17:38 | ED.RN ---
J[employer] comes out to ask for help with pt- while attempting to toilet the pt stopped following commands and began to have jerky movements. pts eyes were bouncing back and fourth and arms were jerking. primary nurse notified and Dr. Ornelas
--- NOTE | 2023-11-04 18:12 | ED.RN ---
spoke to daughter to inform of admission. also notified to please bring bladder stimulator remote.
[2023-11-04] MEDS: Metoprolol Tartrate 5 MG/5 ML Vial IV (18:40)
--- NOTE | 2023-11-04 18:55 | ED.RN ---
RENEA Tamez called pharmacy to send mag to [facility]
[2023-11-04] MEDS: Ondansetron 4 MG/2 ML Vial IV (19:45)
[2023-11-04] MEDS: Magnesium Sulfate 4gm/100mL 4 GM/100 ML IV.SOLN. IV (20:43)
[2023-11-04 22:27] LABS: Anion Gap 8 (5-15); BUN 20 mg/dL (7-18); BUN/Creat Ratio 25.4 RATIO (10-20); Calcium,Total 10.2 mg/dL (8.5-10.1); Chloride 97 mmol/L (98-107); Creatinine, Serum 0.79 mg/dL (0.55-1.02); EST Glomerular Filtration Rate 73 mL/min (>60); Est Glom Filt Rate - Afr Amer 89 mL/min (>60); Estimated Creatinine Clearance 42.78 ml/min; Glucose 255 mg/dL (74-106); Potassium 3.8 mmol/L (3.5-5.1); Sodium Level 131 mmol/L (136-145)
[2023-11-04] MEDS: levETIRAcetam 500 MG Tablet PO (23:41)
[2023-11-04] MEDS: Mirtazapine 15 MG Tablet 7.5 MG PO (23:41)
[2023-11-04] MEDS: Atorvastatin Calcium 40 MG Tablet PO (23:41)
[2023-11-04] MEDS: APIXABAN 5 MG TABLET PO (23:42)
[2023-11-04] MEDS: Tamsulosin HCl 0.4 MG Capsule PO (23:42)
[2023-11-04] MEDS: Aspirin 81 MG TAB.CHEW PO (23:42)
[2023-11-05] VITALS (10 sets, daily range): BP systolic 119–130; BP diastolic 58–94; PULSE 52–82; RESP 15–18; TEMP 36.1–36.9; O2SAT 94–98; BMI 24.8
[2023-11-05] MEDS: Insulin Lispro 100 UNIT/ML INSULN.PEN SC ×3 (00:14→18:39)
[2023-11-05 01:07] LABS: Bedside Glucose 233 mg/dL (74-106)
[2023-11-05] MEDS: 0.9% Normal Saline (1000mL) 1,000 ML 50 ML IV (01:12)
[2023-11-05 06:24] LABS: Absolute Lymphocyte Count 1.49 X10^3/uL (0.83-4.51); Absolute Neutrophil Count 3.7 X10^3/uL (2.0-7.7); Basophil# 0.05 X10^3/uL; Basophil% 0.8 % (0-1); Eosinophil# 0.12 X10^3/uL; Hematocrit 23.8 % (37-47); Hemoglobin 8.1 g/dL (12.0-15.0); Lymphocyte # 1.49 X10^3/ul (0.83-4.51); Lymphocyte % 25.3 % (19-41); Mean Corpuscular Hgb 37.3 pg (27.0-32.0); Mean Corpuscular Volume 109.7 fL (81-99); Mean Platelet Vol. 11.4 fl (6.2-12.0); Monocyte# 0.52 X10^3/uL; Monocyte% 8.8 % (0-10); NRBC Flagged by Analyzer 0 % (0-5); Neutrophil # 3.69 X10^3/uL (2.7-7.7); Neutrophil % 62.8 % (47-70); Platelet Count 238 K/mm3 (150-450); RBC Distribution Width CV 12.7 % (11.6-14.6); RBC Distribution Width SD 50.4 fl (35.1-43.9); Red Blood Count 2.17 M/mm3 (4.2-5.4); White Blood Count 5.9 K/mm3 (4.4-11.0)
[2023-11-05] MEDS: Acetaminophen 325 MG Tablet 650 MG PO (06:58)
[2023-11-05 07:35] LABS: Hemoglobin A1c 5.8 % (3.8-5.6)
[2023-11-05 07:48] LABS: Bedside Glucose 146 mg/dL (74-106)
[2023-11-05 07:59] LABS: AST(SGOT) 11 U/L (15-37); Alanine Aminotransfer ALT/SGPT 13 U/L (13-56); Albumin, Serum 3.1 g/dL (3.2-5.0); Alkaline Phosphatase 50 U/L (45-117); Anion Gap 7 (5-15); BUN 22 mg/dL (7-18); BUN/Creat Ratio 24.9 RATIO (10-20); Calcium,Total 10.2 mg/dL (8.5-10.1); Chloride 98 mmol/L (98-107); Cholesterol 128 mg/dL (200); Creatinine, Serum 0.88 mg/dL (0.55-1.02); EST Glomerular Filtration Rate 64 mL/min (>60); Est Glom Filt Rate - Afr Amer 78 mL/min (>60); Estimated Creatinine Clearance 38.89 ml/min; Globulin 3.1 g/dL (2.2-4.2); Glucose 157 mg/dL (74-106); High Density Lipoprotein 65 mg/dL; Magnesium 2.7 mg/dL (1.6-2.6); Potassium 4.2 mmol/L (3.5-5.1); Protein, Total 6.2 g/dL (6.4-8.2); Sodium Level 130 mmol/L (136-145); Thyroid Stim Hormone (TSH) 0.789 uIU/mL (0.358-3.740); Triglycerides 76 mg/dL; Very Low Density Lipoprotein 15 mg/dL (5-40)
[2023-11-05 08:22] LABS: Vitamin B12 1190 pg/mL (211-911)
--- NOTE | 2023-11-05 08:23 | PN.HOSP_ITS ---
Reason for Visit Reason for Visit: Diagnoses Altered mental status, unspecified (11/04/23) Subjective Subjective Denies complaints. Objective Data Objective Data Vital Signs: Vital Signs Temp Pulse Resp BP Pulse Ox O2 Del Method 35.8 C L 88 22 H 157/94 H 94 Room Air 11/04/23 15:41 11/04/23 18:44 11/04/23 18:44 11/04/23 18:44 11/05/23 02:35 11/05/23 02:35 Oxygen Delivery Method Room Air Weight: 63.3 kg Body Mass Index (BMI) 24.8 Intake & Output: Intake and Output for Last 24 Hours 11/03/23 11/04/23 11/05/23 23:59 23:59 23:59 Intake Total 0 / 0 100 / 100 Output Total 350 / 350 Balance 0 / 0 -250 / -250 Lab / Micro Data 11/05/23 05:42 11/05/23 05:42 Labs: Laboratory Results - last 24 hr 11/04/23 11:35: WBC 4.9, RBC 2.48 L, Hgb 9.1 L, Hct 26.7 L, MCV 107.7 H, MCH 36.7 H, MCHC 34.1, RDW Std Deviation 49.6 H, RDW Coeff of Mariaelena 12.6, Plt Count 255, MPV 11.5, Immature Gran % (Auto) 0.400, Neut % (Auto) 52.7, Lymph % (Auto) 38.2, Twiggs % (Auto) 6.5, Eos % (Auto) 1.0, Baso % (Auto) 1.2 H, Absolute Neuts (auto) 2.6, Absolute Lymphs (auto) 1.87, Nucleated RBC % 0, PT 16.6 H, INR 1.4, APTT 33.1, Sodium 127 L, Potassium 4.3, Chloride 93 L, Carbon Dioxide 25.0, Anion Gap 9, BUN 22 H, Creatinine 0.84, Estim Creat Clear Calc 40.74, Est GFR (MDRD) Af Amer 83, Est GFR (MDRD) Non-Af 68, BUN/Creatinine Ratio 26.3 H, G lucose 220 H, Calcium 10.1, Magnesium 1.5 L, Total Bilirubin 0.50, Direct Bilirubin 0.19, AST 11 L, ALT 18, Alkaline Phosphatase 60, Troponin I High Sens 8, Total Protein 7.8, Albumin 3.9, Globulin 3.9, TSH 1.280 11/04/23 11:42: Urine Color Yellow, Urine Clarity Cloudy, Urine pH 6.0, Ur Specific [place]on 1.010, Urine Protein 100 H, Urine Glucose (UA) Normal, Urine Ketones Negative, Urine Occult Blood 10 H, Urine Nitrite Negative, Urine Bilirubin Negative, Urine Urobilinogen Normal, Ur Leukocyte Esterase 100 H, Urine RBC 0 SEEN, Urine WBC 5-10 SEEN, Ur Squamous Epith Cells 0 SEEN, Urine Bacteria 3+, Urine Mucus 1+ 11/04/23 21:55: Sodium 131 L, Potassium 3.8, Chloride 97 L, Carbon Dioxide 26.0, Anion Gap 8, BUN 20 H, Creatinine 0.79, Estim Creat Clear Calc 42.78, Est GFR (MDRD) Af Amer 89, Est GFR (MDRD) Non-Af 73, BUN/Creatinine Ratio 25.4 H, G lucose 255 H, Calcium 10.2 H 11/04/23 23:39: POC Glucose 233 H 11/05/23 05:42: WBC 5.9, RBC 2.17 L, Hgb 8.1 L, Hct 23.8 L, MCV 109.7 H, MCH 37.3 H, MCHC 34.0, RDW Std Deviation 50.4 H, RDW Coeff of Mariaelena 12.7, Plt Count 238, MPV 11.4, Immature Gran % (Auto) 0.300, Neut % (Auto) 62.8, Lymph % (Auto) 25.3, Twiggs % (Auto) 8.8, Eos % (Auto) 2.0, Baso % (Auto) 0.8, Absolute Neuts (auto) 3.7, Absolute Lymphs (auto) 1.49, Nucleated RBC % 0, Sodium 130 L, Potassium 4.2, Chloride 98, Carbon Dioxide 25.0, Anion Gap 7, BUN 22 H, Creatinine 0.88, Estim Creat Clear Calc 38.89, Est GFR (MDRD) Af Amer 78, Est GFR (MDRD) Non-Af 64, BUN/Creatinine Ratio 24.9 H, Glucose 157 H, Hemoglobin A1c 5.8 H, Calcium 10.2 H, Magnesium 2.7 H, Total Bilirubin 0.40, AST 11 L, ALT 13, Alkaline Phosphatase 50, Total Protein 6.2 L, Albumin 3.1 L, Globulin 3.1, Albumin/Globulin Ratio 1.0, Triglycerides 76, Cholesterol 128, LDL Cholesterol 48, VLDL Cholesterol 15, HDL Cholesterol 65, Vitamin B12 1190 H, Folate 15.60, TSH 0.789 11/05/23 06:38: POC Glucose 146 H Radiography Diagnostic Testing: Radiology Impression Head/Neck CTA 11/04/23 11:31 IMPRESSION: Cerebral atrophy. Calcific plaque at the origin of the right internal carotid artery causing greater than 70% stenosis. Calcific plaque at the origin of the left internal carotid artery causing between 50 and 60% narrowing. Electronically Signed: Major Munoz MD at 13:25 EDT , Chest X-Ray 11/04/23 13:00 IMPRESSION: No acute abnormality is seen. Borderline cardiomegaly. Electronically Signed: Major Munoz MD at 13:20 EDT , Physical Exam Const alert, oriented x3 and no apparent distress HEENT head/scalp atraumatic and moist oral mucous membranes Eyes PERRL and EOMs intact bilaterally Resp normal respiratory effort and no retractions Extremity normal to inspection and no clubbing, cyanosis or edema Neuro moves all extremities and no focal motor deficits Neuro Narrative: Left upper and mid visual field deficits. Sensorium / Orientation: awake and alert Speech: speech normal Psych affect normal Assessment & Plan Assessment/Plan (1) CVA (cerebral vascular accident): PLAN: Blurry vision and abnormal speech pattern-TIA/CVA rule out CTA head and neck Calcific plaque at the origin of the right internal carotid artery causing greater than 70% stenosis and Calcific plaque at the origin of the left internal carotid artery causing between 50 and 60% narrowing. MRI ordered, asa, statin, Echo w/ bubble study, PT/OT/Speech eval, Teleneuro consult ordered Permissive Hypertensive. MRI ordered but patient has a bladder stimulator that will need to be deactivated. Family does not have the information about how would not be deactivated. Information is being gathered for that so the MRI will be performed at a later point (2) Atrial fibrillation, new onset: PLAN: Patient had already been on apixaban prior to arrival. May not be necessarily new diagnosis. . (3) Hyponatremia: PLAN: Unclear chronicity 127 previous value 136 per labs 4 years ago Given sodium and chloride are low with a elevated BUN suspect there may be component of dehydration Improved. TSH WNL (4) Carotid stenosis: PLAN: R internal carotid stenosis CTA head and neck Calcific plaque at the origin of the right internal carotid artery causing greater than 70% stenosis Will perform Doppler Depending on Doppler results of carotids and any stroke or findings on MRI will likely determine need for vascular consult (5) Anemia: QUALIFIERS: Anemia type: unspecified type Qualified Code(s): D 64.9 - Anemia, unspecified PLAN: Microcytic anemia Hemoglobin 9.1 with an MCV of 107.7 Last value available is from 2019 and was 11.1 with MCV of 99.7 on a results tab however oncology progress note from 10/28/2023 reviewed and patient had hemoglobin of 7.7 on 10/01 which is actually up from baseline, lending to possible hemoconcentration Will check folate and B12 No evidence of active bleeding On review of oncology progress note 10/27 pt has been referred for IR consult for bone marrow bx and aspiration due to additional outpt leukopenia PLAN: Plan Chronic conditions: * hx seizures-Not presently having symptoms consistent with seizures-Continue Keppra * Type 2 diabetes mellitus-Glucose 220 in ED-Glucose checks and sliding scale insulin-A1c 5.8 * HTN-SBP 144/90-Hold antihypertensives above * History of depression-Continue mirtazapine * Compression fracture-Receiving back injections * Hypomagnesemia: Replace-Repeat in AM * GERD-Continue PPI * Hx neurogenic bladder-Per documentation InterStim therapy 10/08/[address] Cornell VTE prophylaxis: SCDs. DW patient's dtr at bedside. Charges/Coding Visit Charges Inpatient E&M: 34365 Subs Hosp L2
--- NOTE | 2023-11-05 09:32 | CASEMGMT ---
Discharge Planning Updates sent to [place] via [facility]. Sindi Goldman DC Planning Asst.
[2023-11-05] MEDS: APIXABAN 5 MG TABLET PO ×2 (11:59→19:57)
[2023-11-05] MEDS: Aspirin 81 MG TAB.CHEW PO (11:59)
[2023-11-05] MEDS: Pantoprazole Sodium 20 MG Tablet PO (12:00)
[2023-11-05] MEDS: levETIRAcetam 500 MG Tablet PO ×2 (12:00→19:56)
[2023-11-05 12:24] LABS: Bedside Glucose 169 mg/dL (74-106)
--- NOTE | 2023-11-05 13:41 | CON.PCM.NE_ITS ---
Assessment and Plan: Neuro Assessment/Plan GONZALO VEGA is a 88 F with a past medical history of carotid stenosis, afib, diabetes, depression, seizures, hypertension, being evaluated by Teleneurology for transient improving AMS in the setting of hyponatremia and UTI. Pt is currently improving subjectively and her exam demonstrates improvement in reaction time. Pt is a poor historian and her memory is not good. Will attempt to call her facility to get additional history. Exam is concerning for L sided deficits which are unclear if new. At this time ddx is stroke, possible provoked seizure in setting of metabolic and infectious abnormalities (urine growing GNR), delirium in setting metabolic, infectious, and urine retention, presyncope in setting of severe urine retention. Plan: - management of metabolic and infectious etiology per primary team - MRI Brain pending - continue Keppra 500mg BID, no need for EEG now - agree with apixaban for her afib secondary management. I personally attended this patient and spent a total time of 45 minutes evaluating this patient including clinical assessment, review of chart, medical history imaging, and determining appropriate treatment and workup. HPI Consult Data Date of Consult: 11/06/23 HPI Narrative HPI Narrative: GONZALO VEGA, is a 88-year-old female history of diabetes, depression, seizures, hypertension who presented to [facility] ED 11/04/2023 with complaints of blurry vision and some confusion. Patient is also been spelling words instead of saying them which was abnormal for her. In the ED pt vitally stable, she had a sodium of 127, mg of 1.5, UA with leuk esterase 100 bacteria 3+ blood 1+ mucus and only 5-10 white blood cells, CTA head and neck Calcific plaque at the origin of the right internal carotid artery causing greater than 70% stenosis and Calcific plaque at the origin of the left internal carotid artery causing between 50 and 60% narrowing. Given patient's neurologic symptoms hospitalist contacted for admission for stroke rule out. Patient evaluated at bedside, she is a poor historian and said she had a bowel movement BR O WN and was perseverating on needing cleaned up and wanting to get out of the present room she was in, had difficulty directing her in conversation and there seem to be some difficulty with her understanding directions. Knew she was in [place] but when asked the year she began spelling other words and when informed it was 2023 she reported that she was aware. Difficulty following commands but seemed more due to comprehension and execution then inability to do so. Patient denies current problems with her vision, had difficulty answering individual ROS but denied any other concerns at this time. Neurologic History: Pt states she felt lightheaded after tyring to get up out of bed. She states that she felt and everything went crazy so came to the hospital. She remembers sitting on the bed and does not remember much after that. Still feeling lightheadedness now. No weakness or numbness more on one side than another. Pt states her vision is not blurry anymore. She came from assisted living. Pt is not as slowed in reaction time but really does not remember everything that happened. Pt also has a bladder stimulator, unclear if working. When she was eval in ED, her bladder retained 2.4L of fluid PFSH Medical History PVD (peripheral vascular disease) Osteoarthritis History of pulmonary embolism Chronic back pain Anemia Depression Neurogenic bladder Urinary retention Hearing impairment Wears glasses Wears dentures Breast CA Diabetes Arthritis Post-menopausal Injury of back Former smoker History of edema Hypertension Seizures Uses walker Home Medications ?Medication ?Instructions ?Recorded ?Last Taken ?Type biotin 5 mg tablet 5 mg PO DAILY supplement 10/05/19 Unknown History calcium carbonate 600 mg-vitamin 1 ea PO DAILY supplement 10/05/19 Unknown History D3 10 mcg (400 unit) chewable tablet cholecalciferol (vitamin D3) 25 1,000 unit PO DAILY supplement 10/05/19 Unknown History mcg (1,000 unit) tablet cyanocobalamin (vitamin B-12) 500 500 mcg PO DAILY@0800 supplement 10/05/19 Unknown History mcg tablet ferrous sulfate 325 mg (65 mg 325 mg PO DAILY supplement 10/05/19 Unknown History iron) tablet geriatric [id number] 1 ea PO DAILY supplement 10/05/19 Unknown History insulin glargine 100 unit/mL (3 10 units subcut QHS 10/05/19 Unknown History mL) subcutaneous pen levetiracetam 500 mg tablet 500 mg PO BID seizure 10/05/19 Unknown History metformin 500 mg tablet 500 mg PO BID 10/05/19 Unknown History mirtazapine 15 mg tablet 7.5 mg PO QHS depression 10/05/19 Unknown History omeprazole 20 mg capsule,delayed 20 mg PO DAILY GERD 10/05/19 Unknown History release amlodipine 5 mg tablet 10 mg PO DAILY bp 04/04/20 Unknown History acetaminophen 500 mg tablet 1,000 mg PO TID pain 09/29/20 Unknown History tramadol 50 mg tablet 50 mg PO Q8H PRN pain 04/12/23 Unknown History dicyclomine 10 mg capsule 10 mg PO Q6H PRN pain #60 caps 09/10/23 Unknown Rx losartan 100 mg tablet (Cozaar) 100 mg PO DAILY 09/10/23 Unknown History tamsulosin 0.4 mg capsule 0.4 mg PO QHS 09/10/23 Unknown History dextrose 40 % oral gel (Glucose 15 g PO Q15M PRN hypoglycemia 10/16/23 Unknown History Gel) glucagon 1 mg solution for 1 mg subcut Q20M PRN hypoglycemia 10/16/23 Unknown History injection hydralazine 25 mg tablet 25 mg PO TID 10/16/23 Unknown History lidocaine 4 % topical patch 1 patch topical QDAY PRN pain 10/16/23 Unknown History loperamide 2 mg capsule 2 mg PO Q6H PRN loose stool 10/16/23 Unknown History (Anti-Diarrheal (loperamide)) Allergy/AdvReac Type Severity Reaction Status Date / Time doxycycline (From Vibramycin) Allergy PT UNSURE Verified 10/28/23 08:58 OF REACTION gabapentin Allergy PT UNSURE Verified 10/28/23 08:58 OF REACTION Surgical History History of left knee replacement History of left mastectomy Social History Smoking Status: Former smoker Vital Signs Vital Signs Vital Signs: 11/04/23 14:00 11/04/23 15:41 11/04/23 18:00 Temperature 96.5 F L Temperature Source Pulse Rate 115 H 120 H 114 H Respiratory Rate 16 18 18 Respiratory Effort Respiratory Depth Respiratory Pattern Blood Pressure 171/102 H 164/94 H 195/113 H Blood Pressure Mean 125 117 140 Blood Pressure Source Blood Pressure Position Blood Pressure Location Pulse Ox 97 96 Oxygen Delivery Method 11/04/23 18:44 11/04/23 20:00 11/04/23 21:00 Temperature 98.0 F Temperature Source Oral Pulse Rate 88 46 L Respiratory Rate 22 H 18 Respiratory Effort Normal Non-Labored Respiratory Depth Normal Respiratory Pattern Normal Blood Pressure 157/94 H 134/68 H Blood Pressure Mean 115 90 Blood Pressure Source Monitor Blood Pressure Position Supine Blood Pressure Location Right Arm Pulse Ox 98 98 Oxygen Delivery Method Room Air Room Air Room Air 11/05/23 00:00 11/05/23 02:35 11/05/23 04:00 Temperature 97.0 F L 98.4 F Temperature Source Temporal Oral Pulse Rate 52 L 58 L Respiratory Rate 18 18 Respiratory Effort Respiratory Depth Respiratory Pattern Blood Pressure 122/58 H 130/94 H Blood Pressure Mean 79 106 Blood Pressure Source Monitor Monitor Blood Pressure Position Semi-Fowlers Semi-Fowlers Blood Pressure Location Right Arm Right Arm Pulse Ox 95 94 96 Oxygen Delivery Method Room Air Room Air Room Air 11/05/23 04:41 11/05/23 06:30 11/05/23 07:37 Temperature 97.5 F L Temperature Source Temporal Pulse Rate 74 Respiratory Rate 18 Respiratory Effort Respiratory Depth Normal Respiratory Pattern Normal Blood Pressure 125/76 H Blood Pressure Mean 92 Blood Pressure Source Monitor Blood Pressure Position Semi-Fowlers Blood Pressure Location Right Arm Pulse Ox 95 94 Oxygen Delivery Method Room Air Room Air Room Air 11/05/23 09:57 Temperature Temperature Source Pulse Rate Respiratory Rate Respiratory Effort Respiratory Depth Respiratory Pattern Blood Pressure Blood Pressure Mean Blood Pressure Source Blood Pressure Position Blood Pressure Location Pulse Ox 95 Oxygen Delivery Method Weight Weight: 63.3 kg Body Mass Index (BMI) 24.8 NIHSS NIHSS Nursing Documentation NIHSS Nursing Documentation: NIH Stroke Scale Start: 11/04/23 10:14 Freq: Status: Discharge Protocol: Activity Type Activity Date Activity User E-sign Co-sign Detail Recorded Client Recorded Date Recorded By Document 11/04/23 10:14 [id number] 11/04/23 10:15 11/04/23 10:14 NIH Stroke Scale [NIHSS] A score of 0 is normal or asymptomatic . Total possible score is 42. Inpatient: RN or Physician to activate a stroke alert for onset of new stroke symptoms or with NIHSS increase >/= 3 points. Following change in neurological status, NIHSS will be performed per physician order or more frequently PRN. -1a. Level of Consciousness Alert; keenly responsive -1b. LOC Questions Answers one question correctly. -1c. LOC Commands Performs both tasks correctly . -2. Best Gaze Normal -3. Visual No visual loss -4. Facial Palsy Minor paralysis (flattened nasolabial fold , asymmetry on smiling) -5a. Left Arm No drift; arm holds 90 (or 45 ) degrees for full 10 seconds -5b. Right Arm No drift; arm holds 90 (or 45 ) degrees for full 10 seconds -6a. Left Leg No drift; leg holds 30-degree position for full 5 seconds -6b. Right Leg No drift; leg holds 30-degree position for full 5 seconds -7. Limb Ataxia Absent -8. Sensory Normal; no sensory loss -9. Best Language Mild-to- moderate aphasia; -10. Dysarthria Normal -11. Extinction and Inattention No abnormality -Total 3 Query Text:A score of 0 is normal or asymptomatic. Total possible score is 42 . ED: Notify Physician for NIHSS increase by > / = 3 points. Inpatient: RN or Physician to activate a stroke alert for NIHSS increase of > / = 3 points. NIHSS: Ischemic Stroke/TIA Start: 11/04/23 19:22 Text: For PCU Patients: NIH and Neuro Check every 4 Status: Active hours, PRN and with change in RN caregiver. Freq: [id number] Protocol: Activity Type Activity Date Activity User E-sign Co-sign Detail Recorded Client Recorded Date Recorded By Document 11/05/23 10:00 ZAKI desktop 11/05/23 12:53 ZAKI 11/05/23 10:00 -1a. Level of Consciousness Alert; keenly responsive -1b. LOC Questions Answers BOTH questions correctly. -1c. LOC Commands Performs both tasks correctly . -2. Best Gaze Normal -3. Visual No visual loss -4. Facial Palsy Normal symmetrical movements -5a. Left Arm No drift; arm holds 90 (or 45 ) degrees for full 10 seconds -5b. Right Arm No drift; arm holds 90 (or 45 ) degrees for full 10 seconds -6a. Left Leg No drift; leg holds 30-degree position for full 5 seconds -6b. Right Leg No drift; leg holds 30-degree position for full 5 seconds -7. Limb Ataxia Present in 1 limb -8. Sensory Normal; no sensory loss -9. Best Language Mild-to- moderate aphasia; -10. Dysarthria Normal -11. Extinction and Inattention No abnormality -Total 2 Query Text:A score of 0 is normal or asymptomatic. Total possible score is 42 . ED: Notify Physician for NIHSS increase by > / = 3 points. Inpatient: RN or Physician to activate a stroke alert for NIHSS increase of > / = 3 points. Coma Scale [Assess] -Eye Opening Spontaneous -Motor Obeys Commands -Verbal Confused [Total] -Coma Scale Total 14 Physical Exam Narrative -? General: Laying comfortably in bed; in no acute distress. -? HENT: Normal oropharynx and mucosa. Normal external appearance of ears and nose. Exophthalmos. -? Neck: Supple, no pain or tenderness -? CV:? No peripheral edema. -? Pulmonary:? Normal respiratory effort. -? Ext: No cyanosis, edema, or deformity -? Skin: No rash. Normal palpation of skin.? -? Musculoskeletal: full range of motion; no joint tenderness. Normal digits and nails by inspection. No clubbing. -? NEURO: -? Mental Status: The patient was alert and oriented to time, place, and person. Normal recent/remote memory, concentration, and general fund of knowledge. -? Language: speech is clear.? Naming, repetition, fluency, and comprehension intact. -? Cranial Nerves: EOMI, visual figueroa full, no facial asymmetry, facial sensation intact, hearing intact, tongue midline, no evidence of atrophy or fibrillations. -? Motor: normal bulk, tone, and strength throughout. No pronator drift or satelliting. Upper and lower extremities equal bilaterally. -? Detailed strength exam as performed by the nurse/AMADO and witnessed by the physician: l R L SA EE 5 5 EF 5 5 WE WF Farm Supervisor 5 5 HF 5 5- KE 5 5 KF DF 5 4 PF -? Tone: is normal and bulk is normal -? Sensation- diminished in the LLE -? Coordination: No dysmetria on [id number], finger follow finger or [id number]. -? Gait- deferred Lab / Micro Data 11/05/23 05:42 11/05/23 05:42 Labs: Laboratory Results - last 24 hr 11/04/23 21:55: Sodium 131 L, Potassium 3.8, Chloride 97 L, Carbon Dioxide 26.0, Anion Gap 8, BUN 20 H, Creatinine 0.79, Estim Creat Clear Calc 42.78, Est GFR (MDRD) Af Amer 89, Est GFR (MDRD) Non-Af 73, BUN/Creatinine Ratio 25.4 H, G lucose 255 H, Calcium 10.2 H 11/04/23 23:39: POC Glucose 233 H 11/05/23 05:42: WBC 5.9, RBC 2.17 L, Hgb 8.1 L, Hct 23.8 L, MCV 109.7 H, MCH 37.3 H, MCHC 34.0, RDW Std Deviation 50.4 H, RDW Coeff of Mariaelena 12.7, Plt Count 238, MPV 11.4, Immature Gran % (Auto) 0.300, Neut % (Auto) 62.8, Lymph % (Auto) 25.3, Whiteside % (Auto) 8.8, Eos % (Auto) 2.0, Baso % (Auto) 0.8, Absolute Neuts (auto) 3.7, Absolute Lymphs (auto) 1.49, Nucleated RBC % 0, Sodium 130 L, Potassium 4.2, Chloride 98, Carbon Dioxide 25.0, Anion Gap 7, BUN 22 H, Creatinine 0.88, Estim Creat Clear Calc 38.89, Est GFR (MDRD) Af Amer 78, Est GFR (MDRD) Non-Af 64, BUN/Creatinine Ratio 24.9 H, Glucose 157 H, Hemoglobin A1c 5.8 H, Calcium 10.2 H, Magnesium 2.7 H, Total Bilirubin 0.40, AST 11 L, ALT 13, Alkaline Phosphatase 50, Total Protein 6.2 L, Albumin 3.1 L, Globulin 3.1, Albumin/Globulin Ratio 1.0, Triglycerides 76, Cholesterol 128, LDL Cholesterol 48, VLDL Cholesterol 15, HDL Cholesterol 65, Vitamin B12 1190 H, Folate 15.60, TSH 0.789 11/05/23 06:38: POC Glucose 146 H 11/05/23 12:05: POC Glucose 169 H Micro: Microbiology 11/04/23 11:42 Urine Catheter - Catheter Urine Culture - Preliminary GNR lactose revenue cycle specialist Imaging Radiology Impression Chest X-Ray 11/04/23 13:00 IMPRESSION: No acute abnormality is seen. Borderline cardiomegaly. Electronically Signed: Major Munoz MD at 13:20 EDT , Active Medications Active Medications Active Medications: Current Medications Generic Name Dose Route Start Last Admin Trade Name Freq PRN Reason Stop Dose Admin Acetaminophen 650 mg 11/04/23 19:22 11/05/23 06:58 Acetaminophen 325 Mg Tablet PO 650 mg Q6H PRN PRN Administration Pain 1-10 Or Fever >100.7 Albuterol Sulfate 2.5 mg 11/04/23 19:22 Albuterol 2.5 Mg/3 Ml Vial.Neb. INHALATION Q2H PRN PRN SOB &/OR WHEEZING Apixaban 5 mg 11/04/23 22:00 11/05/23 11:59 Apixaban 5 Mg Tablet PO 5 mg BID WILLIAM Administration Aspirin 81 mg 11/05/23 08:00 11/05/23 11:59 Aspirin 81 Mg Tab.Chew PO 81 mg BREAKFAST WILLIAM Administration Atorvastatin Calcium 40 mg 11/04/23 22:00 11/04/23 23:41 Atorvastatin Calcium 40 Mg Tablet PO 40 mg QHS WILLIAM Administration Glucagon 1 mg 11/04/23 19:22 Glucagon 1 Mg/Ml Syringe IM X1 PRN Hypoglycemia Protocol Hydralazine HCl 5 mg 11/04/23 19:22 Hydralazine 20 Mg/Ml Vial IV 11/05/23 19:22 Q30M PRN maintain BP parameters with HR <60 Dextrose 250 mls @ 0 mls/hr 11/04/23 19:22 Dextrose 10%-Water IV .Q0M PRN HYPOGLYCEMIA Protocol As Directed Sodium Chloride 250 mls @ 15 mls/hr 11/04/23 19:48 IV .[id number] PRN Additional IVPB Infusion Sodium Chloride 250 mls @ 15 mls/hr 11/04/23 19:48 IV .[id number] PRN Saline Flush Insulin Human Lispro 0 unit 11/04/23 19:22 11/05/23 11:59 Insulin Lispro 100 Unit/Ml Insuln.Pen SC 1 u TIDAC WILLIAM Administration Protocol Labetalol HCl 10 - 20 mg 11/04/23 19:22 Labetalol (Prefilled) 20 Mg/4 Ml IV 11/05/23 19:22 Q10M PRN PRN maintain BP parameters with HR >/=60 Levetiracetam 500 mg 11/04/23 22:00 11/05/23 12:00 Levetiracetam 500 Mg Tablet PO 500 mg BID WILLIAM Administration Melatonin 3 mg 11/04/23 19:22 Melatonin 3 Mg Tablet PO QHS PRN PRN INSOMNIA Mirtazapine 7.5 mg 11/04/23 22:00 11/04/23 23:41 Mirtazapine 15 Mg Tablet PO 7.5 mg QHS [facility] Administration Ondansetron HCl 4 mg 11/04/23 19:22 11/04/23 19:45 Ondansetron 4 Mg/2 Ml Vial IV 4 mg Q8H PRN PRN Administration NAUSEA/VOMITING Pantoprazole Sodium 20 mg 11/05/23 10:00 11/05/23 12:00 Pantoprazole Sodium 20 Mg Tablet PO 20 mg DAILY WILLIAM Administration Senna/Docusate Sodium 2 tablet 11/04/23 19:22 Senna/Docusate Sodium 1 Tablet PO BID PRN PRN Constipation Sodium Chloride 10 - 40 ml 11/04/23 19:48 0.9% Saline Lock 10 Ml Syringe IV UD PRN SALINE FLUSH Tamsulosin HCl 0.4 mg 11/04/23 22:00 11/04/23 23:42 Tamsulosin Hcl 0.4 Mg Capsule PO 0.4 mg QHS [facility] Administration
--- NOTE | 2023-11-05 14:41 | MRI_ITS ---
STUDY: MRI BRAIN WITHOUT CONTRAST REASON FOR EXAM: Female, 88 years old. cva/tia w/u -- TECHNIQUE: Standardized multiplanar fat and water weighted pulse sequences were obtained. COMPARISON: CT of the brain February 28, 2020 ct of the brain November 04, 2023 FINDINGS: Mild atrophy and moderate periventricular white matter ischemic changes without mass effect or restricted diffusion.. There is disproportionate dilatation of the lateral ventricles with respect to the cortical sulci and possibility of communicating hydrocephalus or NPH not excluded. Normal bilateral basal ganglia. Normal thalami. There is no extra-axial fluid accumulation. Normal flow voids within the major intracranial circulation suggesting patency by spin echo criteria. Normal sella turcica, pituitary gland, infundibular stalk, optic chiasm and hypothalamus. Normal tectal plate and pineal gland. Normal midbrain, clarita and medulla. Normal cerebellum. Normal basal cisterns. Normal bilateral temporal bones. Normal bilateral internal auditory canals. Postsurgical changes of the orbits. Normal visualized paranasal sinuses. Normal calvarium and skull base. Normal visualized soft tissue structures. Normal visualized upper cervical spine. MRI/Brain without Contrast IMPRESSION: Atrophy and moderate periventricular white matter ischemic changes without evidence for acute infarct. Cannot definitively exclude possibility of coexisting NPH. Electronically Signed: Espinoza Saucedo MD at 18:29 EDT ,
--- NOTE | 2023-11-05 15:30 | CASEMGMT ---
MATTHEWS Pt is not cognitively able to complete MATTHEWS form. VM left for her son, Dylan. Sindi Goldman DC Planning Asst.
[2023-11-05] MEDS: LORazepam 0.5 MG Tablet PO (16:22)
[2023-11-05 18:59] LABS: Bedside Glucose 212 mg/dL (74-106)
[2023-11-05] MEDS: Mirtazapine 15 MG Tablet 7.5 MG PO (19:55)
[2023-11-05] MEDS: Atorvastatin Calcium 40 MG Tablet PO (19:56)
[2023-11-05] MEDS: Tamsulosin HCl 0.4 MG Capsule PO (19:56)
[2023-11-06 06:10] LABS: Bedside Glucose 178 mg/dL (74-106)
[2023-11-06 06:45] LABS: Bedside Glucose 173 mg/dL (74-106)
[2023-11-06 08:15] VITALS: O2SAT 91
--- NOTE | 2023-11-06 08:51 | PN.HOSP_ITS ---
Reason for Visit Reason for Visit: Diagnoses Anemia, unspecified (11/04/23) Hypo-osmolality and hyponatremia (11/04/23) Unspecified atrial fibrillation (11/04/23) Cerebral infarction, unspecified (11/04/23) Occlusion and stenosis of unspecified carotid artery (11/04/23) Altered mental status, unspecified (11/04/23) Subjective Subjective Feeling well. Much more interactive according to her family. Objective Data Objective Data Vital Signs: Vital Signs Temp Pulse Resp BP Pulse Ox O2 Del Method 36.6 C 82 15 122/82 H 97 Room Air 11/05/23 22:00 11/05/23 22:00 11/05/23 22:00 11/05/23 22:00 11/05/23 22:00 11/05/23 22:00 Oxygen Delivery Method Room Air Weight: 63.3 kg Body Mass Index (BMI) 24.8 Intake & Output: Intake and Output for Last 24 Hours 11/04/23 11/05/23 11/06/23 23:59 23:59 23:59 Intake Total 0 / 0 850 / 970 120 / 120 Output Total 350 / 750 400 / 400 Balance 0 / 0 500 / 220 -280 / -280 Lab / Micro Data 11/05/23 05:42 11/05/23 05:42 Labs: Laboratory Results - last 24 hr 11/05/23 12:05: POC Glucose 169 H 11/05/23 18:37: POC Glucose 212 H 11/06/23 02:24: POC Glucose 178 H 11/06/23 06:28: POC Glucose 173 H Micro: Microbiology 11/04/23 11:42 Urine Catheter - Catheter Urine Culture - Final Klebsiella pneumoniae sp pneum Radiography Diagnostic Testing: Radiology Impression Carotid Duplex 11/04/23 14:41 Interpretation Summary Mild (<50%) stenosis right extracranial internal carotid. Mild (<50%) stenosis left extracranial internal carotid. Patent and antegrade vertebrals bilaterally. Limited due to calcific shadowing bilateral. Ordering Physician: Amarilis Spence Referring Physician: Jose Bashir Performed By: Nelly Eugene, RVT Echocardiogram 11/04/23 14:41 Interpretation Summary The estimated ejection fraction is 65 %. Trivial mitral valve insufficiency. The left atrium is mildly enlarged. Diastolic function is indeterminate. Ordering Physician: Amarilis Spence Performed By: Sam Fishman, [facility] Brain MRI 11/05/23 14:41 IMPRESSION: Atrophy and moderate periventricular white matter ischemic changes without evidence for acute infarct. Cannot definitively exclude possibility of coexisting NPH. Electronically Signed: Espinoza Saucedo MD at 18:29 EDT , Physical Exam Const Constitutional Narrative: Patient much more alert today following commands appears less confused. Unable to appreciate any visual field deficits. Suspect some of the visual field deficits yesterday but more related with confusion not following commands properly. Cardio regular rate and regular rhythm Neuro Sensorium / Orientation: awake and alert Assessment & Plan Assessment/Plan (1) Vision changes: PLAN: Suspect due to underlying urinary tract infection. Initial urinalysis was rather benign but urine culture grew out Klebsiella. So much of her symptoms may have been related with underlying urinary tract infection. No evidence of any stroke. I doubt the patient has normal pressure hydrocephalus clinically MRI showed atrophy and moderate periventricular white matter ischemic changes without evidence of any acute infarct. Cannot definitively exclude possibility of coexisting NPH. Echo shows an EF of 35%. Carotid duplex shows less than 50% stenosis bilaterally. (2) UTI (urinary tract infection): PLAN: Positive Klebsiella. Will discharge with 5-day course of ciprofloxacin. (3) Atrial fibrillation, new onset: PLAN: Patient had already been on apixaban prior to arrival. May not be necessarily new diagnosis. . (4) Hyponatremia: PLAN: Unclear chronicity 127 previous value 136 per labs 4 years ago Given sodium and chloride are low with a elevated BUN suspect there may be component of dehydration Improved. TSH WNL (5) Carotid stenosis: PLAN: R internal carotid stenosis CTA head and neck Calcific plaque at the origin of the right internal carotid artery causing greater than 70% stenosis Will perform Doppler Depending on Doppler results of carotids and any stroke or findings on MRI will likely determine need for vascular consult Carotid duplex shows less than 50% stenosis bilaterally. (6) Anemia: QUALIFIERS: Anemia type: unspecified type Qualified Code(s): D 64.9 - Anemia, unspecified PLAN: Microcytic anemia Hemoglobin 9.1 with an MCV of 107.7 Last value available is from 2019 and was 11.1 with MCV of 99.7 on a results tab however oncology progress note from 10/28/2023 reviewed and patient had hemoglobin of 7.7 on 10/01 which is actually up from baseline, lending to possible hemoconcentration Will check folate and B12 No evidence of active bleeding On review of oncology progress note 10/27 pt has been referred for IR consult for bone marrow bx and aspiration due to additional outpt leukopenia PLAN: Plan Chronic conditions: * hx seizures-Not presently having symptoms consistent with seizures-Continue Keppra * Type 2 diabetes mellitus-Glucose 220 in ED-Glucose checks and sliding scale insulin-A1c 5.8 * HTN-SBP 144/90-Hold antihypertensives above * History of depression-Continue mirtazapine * Compression fracture-Receiving back injections * Hypomagnesemia: Replace-Repeat in AM * GERD-Continue PPI * Hx neurogenic bladder-Per documentation InterStim therapy 10/08/[address] Cornell VTE prophylaxis: SCDs. Discussed with the patient's son and [id number]. Reviewed data, urine studies, MRI. Explained that her condition may have been precipitated by an underlying urinary tract infection Discharge back to long-term.
[2023-11-06 09:00] VITALS: O2SAT 97
--- NOTE | 2023-11-06 09:02 | CASEMGMT ---
SW did not complete a PHQ 9 as patient did not have a Stroke. Lore CORONADO
[2023-11-06 10:07] VITALS: BP 140/64; PULSE 73; RESP 16; TEMP 36.7; O2SAT 98
[2023-11-06] MEDS: Aspirin 81 MG TAB.CHEW PO (10:12)
[2023-11-06] MEDS: APIXABAN 5 MG TABLET PO (10:12)
[2023-11-06] MEDS: Pantoprazole Sodium 20 MG Tablet PO (10:12)
[2023-11-06] MEDS: levETIRAcetam 500 MG Tablet PO (10:12)
--- NOTE | 2023-11-06 10:24 | NURSING ---
NIH discontinued on nightshift by Araya. See downtime documentation for order.
--- NOTE | 2023-11-06 11:34 | TREXTCAR_ITS ---
Diet Diet Order/Speech Therapy: 11/04/23 19:22 Diet: Regular - General Food consistency:: Regular Liquid Consistency:: Regular/Thin Routine Orders/Code Status Code Status: DNRCC-A (no intubation) Wound(s) Left Mcleod: Wound Type: Abrasion Problem/Diagnosis (1) Vision changes: Status: Acute Code(s): H53.9 - Unspecified visual disturbance Plan: Suspect due to underlying urinary tract infection. Initial urinalysis was rath er benign but urine culture grew out Klebsiella. So much of her symptoms may have been related with underlying urinary tract infection. No evidence of any stroke. I doubt the patient has normal pressure hydrocephalus clinically MRI showed atrophy and moderate periventricular white matter ischemic changes without evidence of any acute infarct. Cannot definitively exclude possibility of coexisting NPH. Echo shows an EF of 35%. Carotid duplex shows less than 50% stenosis bilaterally. (2) UTI (urinary tract infection): Status: Acute Code(s): N39.0 - Urinary tract infection, site not specified Plan: Positive Klebsiella. Will discharge with 5-day course of ciprofloxacin. (3) Atrial fibrillation, new onset: Status: Acute Code(s): I48.91 - Unspecified atrial fibrillation Plan: Patient had already been on apixaban prior to arrival. May not be necessarily new diagnosis. . (4) Hyponatremia: Status: Acute Code(s): E87.1 - Hypo-osmolality and hyponatremia Plan: Unclear chronicity 127 previous value 136 per labs 4 years ago Given sodium and chloride are low with a elevated BUN suspect there may be component of dehydration Improved. TSH WNL (5) Carotid stenosis: Status: Acute Code(s): I65.29 - Occlusion and stenosis of unspecified carotid artery Plan: R internal carotid stenosis CTA head and neck Calcific plaque at the origin of the right internal carotid artery causing greater than 70% stenosis Will perform Doppler Depending on Doppler results of carotids and any stroke or findings on MRI will likely determine need for vascular consult Carotid duplex shows less than 50% stenosis bilaterally. (6) Anemia: Status: Acute Code(s): D64.9 - Anemia, unspecified Plan: Microcytic anemia Hemoglobin 9.1 with an MCV of 107.7 Last value available is from 2019 and was 11.1 with MCV of 99.7 on a results tab however oncology progress note from 10/28/2023 reviewed and patient had hemoglobin of 7.7 on 10/01 which is actually up from baseline, lending to possible hemoconcentration Will check folate and B12 No evidence of active bleeding On review of oncology progress note 10/27 pt has been referred for IR consult for bone marrow bx and aspiration due to additional outpt leukopenia Plan Chronic conditions: * hx seizures-Not presently having symptoms consistent with seizures-Continue Keppra * Type 2 diabetes mellitus-Glucose 220 in ED-Glucose checks and sliding scale insulin-A1c 5.8 * HTN-SBP 144/90-Hold antihypertensives above * History of depression-Continue mirtazapine * Compression fracture-Receiving back injections * Hypomagnesemia: Replace-Repeat in AM * GERD-Continue PPI * Hx neurogenic bladder-Per documentation InterStim therapy 10/08/[address] Cornell VTE prophylaxis: SCDs. Discussed with the patient's son and [id number]. Reviewed data, urine studies, MRI. Explained that her condition may have been precipitated by an underlying urinary tract infection Discharge back to fdc. Allergies/Procedures Done in Hospital Allergies doxycycline (From Vibramycin) Allergy (Verified 10/28/23 08:58) PT UNSURE OF REACTION gabapentin Allergy (Verified 10/28/23 08:58) PT UNSURE OF REACTION Procedures: 2-D Echocardiogram Type of Care/Length of Stay Estimated LOS: More Than 30 Days Type of Care Needed: Intermediate Rehab Potential: Fair Prognosis: Fair Additional Orders/Day of Discharge Day of Discharge: 11/06/23 Dietary and Speech Recommendations Dietitian Recommendations/Changes: Will continue liberalized regular diet as PO established with meals to encourage intake--restrict carbohydrates as indicated if blood glucose rises. ONS as needed if PO declines. Discharge Plan Admission Admit Date/Time: 11/04/23 14:31 Primary Reason for Your Visit: UTI Attending Provider: John Garcia Primary Care Provider: Jose Bashir Consulting Providers: Sachin Le; Donnell Hernandez; Mónica Hung; Paola Pimentel; Sayda Meyer; Riky Oneil; Kimberly Tubbs; Kentrell Kaur; Josue Atwood; Maurisio Florian; Mary Miranda; Vernon Krause; Miguelina Garcia; Nolan Wilson; Shayna Romeo [facility]; Andrew Logan; Mikki Farah; Pete Becerril; Lore Aguillon; Moody Romero; Amarilis Spence Discharge Orders/Prescriptions Prescriptions: New ciprofloxacin HCl 500 mg tablet 500 mg PO Q12H Qty: 10 0RF Continued amlodipine 5 mg tablet 10 mg PO DAILY tramadol 50 mg tablet 50 mg PO Q8H PRN (Reason: pain) losartan [Cozaar] 100 mg tablet 100 mg PO DAILY tamsulosin 0.4 mg capsule 0.4 mg PO QHS dicyclomine 10 mg capsule 10 mg PO Q6H PRN (Reason: pain) Qty: 60 2RF glucagon 1 mg recon soln 1 mg subcut Q20M PRN (Reason: hypoglycemia) Rx Instructions: until target blood sugar attained dextrose [Glucose Gel] 40 % gel 15 g PO Q15M PRN (Reason: hypoglycemia) Rx Instructions: until symptoms of low blood sugar are controlled hydralazine 25 mg tablet 25 mg PO TID loperamide [Anti-Diarrheal (loperamide)] 2 mg capsule 2 mg PO Q6H PRN (Reason: loose stool) lidocaine 4 % adhesive patch,medicated 1 patch topical QDAY PRN (Reason: pain) metformin 500 MG tablet 500 mg PO BID levetiracetam 500 MG tablet 500 mg PO BID cyanocobalamin (vitamin B-12) 500 MCG tablet 500 mcg PO DAILY@0800 ferrous sulfate 325 MG tablet 325 mg PO DAILY omeprazole 20 MG capsule 20 mg PO DAILY mirtazapine 15 MG tablet 7.5 mg PO QHS geriatric [id number]-rewz-[id number] 1 EACH tablet 1 ea PO DAILY cholecalciferol (vitamin D3) 1,000 UNIT tablet 1,000 unit PO DAILY biotin 5 MG tablet 5 mg PO DAILY insulin glargine 100 UNITS/ML insulin pen 10 units subcut QHS calcium carbonate-vitamin D3 1 EACH tablet,chewable 1 ea PO DAILY acetaminophen 500 mg Tablet 1,000 mg PO TID Referrals / Follow Up: Jose Bashir MD [Primary Care Provider] - Within 2 Weeks Disposition Disposition (needs filled in before D/C Order can be placed): NonSkilled NH/Intermed Care (6) Anemia Qualifiers: Anemia type: unspecified type Qualified Code(s): D64.9 - Anemia, unspecified
--- NOTE | 2023-11-06 11:40 | DS.PCM_ITS ---
Providers Date of Admission: 11/04/23 Primary Care Physician: Dr. Jose Bashir MD Consultations 11/05/23 05:55 Consult: Tele-Neurology AM (NON MEDS) Consulting Provider: [facility] Reason for Consult: Acute Ischemic Stroke/TIA r/o EMERGENT Consult: No MD Notified: Yes Date Notified: 11/05/23 Time Notified: 04:20 Method of Notification: Answering Service Nursing Unit Staff Notify [facility] of Tele-Neurology Consult: Yes Reason For Visit: CVA/TIA R/O Diagnosis Discharge Diagnosis (1) Vision changes: Status: Acute Code(s): H53.9 - Unspecified visual disturbance Plan: Suspect due to underlying urinary tract infection. Initial urinalysis was rather benign but urine culture grew out Klebsiella. So much of her symptoms may have been related with underlying urinary tract infection. No evidence of any stroke. I doubt the patient has normal pressure hydrocephalus clinically MRI showed atrophy and moderate periventricular white matter ischemic changes without evidence of any acute infarct. Cannot definitively exclude possibility of coexisting NPH. Echo shows an EF of 35%. Carotid duplex shows less than 50% stenosis bilaterally. (2) UTI (urinary tract infection): Status: Acute Code(s): N39.0 - Urinary tract infection, site not specified Plan: Positive Klebsiella. Will discharge with 5-day course of ciprofloxacin. (3) Atrial fibrillation, new onset: Status: Acute Code(s): I48.91 - Unspecified atrial fibrillation Plan: Patient had already been on apixaban prior to arrival. May not be necessarily new diagnosis. . (4) Hyponatremia: Status: Acute Code(s): E87.1 - Hypo-osmolality and hyponatremia Plan: Unclear chronicity 127 previous value 136 per labs 4 years ago Given sodium and chloride are low with a elevated BUN suspect there may be component of dehydration Improved. TSH WNL (5) Carotid stenosis: Status: Acute Code(s): I65.29 - Occlusion and stenosis of unspecified carotid artery Plan: R internal carotid stenosis CTA head and neck Calcific plaque at the origin of the right internal carotid artery causing greater than 70% stenosis Will perform Doppler Depending on Doppler results of carotids and any stroke or findings on MRI will likely determine need for vascular consult Carotid duplex shows less than 50% stenosis bilaterally. (6) Anemia: Status: Acute Code(s): D64.9 - Anemia, unspecified Qualifiers: Anemia type: unspecified type Qualified Code(s): D64.9 - Anemia, unspecified Plan: Microcytic anemia Hemoglobin 9.1 with an MCV of 107.7 Last value available is from 2019 and was 11.1 with MCV of 99.7 on a results tab however oncology progress note from 10/28/2023 reviewed and patient had hemoglobin of 7.7 on 10/01 which is actually up from baseline, lending to possible hemoconcentration Will check folate and B12 No evidence of active bleeding On review of oncology progress note 10/27 pt has been referred for IR consult for bone marrow bx and aspiration due to additional outpt leukopenia Plan Chronic conditions: * hx seizures-Not presently having symptoms consistent with seizures-Continue Keppra * Type 2 diabetes mellitus-Glucose 220 in ED-Glucose checks and sliding scale insulin-A1c 5.8 * HTN-SBP 144/90-Hold antihypertensives above * History of depression-Continue mirtazapine * Compression fracture-Receiving back injections * Hypomagnesemia: Replace-Repeat in AM * GERD-Continue PPI * Hx neurogenic bladder-Per documentation InterStim therapy 10/08/[address] Cornell VTE prophylaxis: SCDs. Discussed with the patient's son and [id number]. Reviewed data, urine studies, MRI. Explained that her condition may have been precipitated by an underlying urinary tract infection Discharge back to fdc. Medications at Discharge Home Medications biotin 5 mg tablet 5 mg PO DAILY supplement 10/05/19 calcium carbonate 600 mg-vitamin D3 10 mcg (400 unit) chewable tablet 1 ea PO DAILY supplement 10/05/19 cholecalciferol (vitamin D3) 25 mcg (1,000 unit) tablet 1,000 unit PO DAILY supplement 10/05/19 cyanocobalamin (vitamin B-12) 500 mcg tablet 500 mcg PO DAILY@0800 supplement 10/05/19 ferrous sulfate 325 mg (65 mg iron) tablet 325 mg PO DAILY supplement 10/05/19 geriatric onjfkjop-jmrt-fnef 1 ea PO DAILY supplement 10/05/19 insulin glargine 100 unit/mL (3 mL) subcutaneous pen 10 units subcut QHS 10/05/19 levetiracetam 500 mg tablet 500 mg PO BID seizure 10/05/19 metformin 500 mg tablet 500 mg PO BID 10/05/19 mirtazapine 15 mg tablet 7.5 mg PO QHS depression 10/05/19 omeprazole 20 mg capsule,delayed release 20 mg PO DAILY GERD 10/05/19 amlodipine 5 mg tablet 10 mg PO DAILY bp 04/04/20 acetaminophen 500 mg tablet 1,000 mg PO TID pain 09/29/20 tramadol 50 mg tablet 50 mg PO Q8H PRN pain 04/12/23 dicyclomine 10 mg capsule 10 mg PO Q6H PRN pain #60 caps 09/10/23 losartan 100 mg tablet (Cozaar) 100 mg PO DAILY 09/10/23 tamsulosin 0.4 mg capsule 0.4 mg PO QHS 09/10/23 dextrose 40 % oral gel (Glucose Gel) 15 g PO Q15M PRN hypoglycemia 10/16/23 glucagon 1 mg solution for injection 1 mg subcut Q20M PRN hypoglycemia 10/16/23 hydralazine 25 mg tablet 25 mg PO TID 10/16/23 lidocaine 4 % topical patch 1 patch topical QDAY PRN pain 10/16/23 loperamide 2 mg capsule (Anti-Diarrheal (loperamide)) 2 mg PO Q6H PRN loose stool 10/16/23 ciprofloxacin HCl 500 mg tablet 500 mg PO Q12H #10 tabs 11/06/23 Hospital Course Operations None Procedures 2-D Echocardiogram Summary of Care Provided Minutes Spent on Discharge: 35 Hospital Course: Patient presents with confusion and visual changes. Patient underwent a stroke workup and had an MRI that came back showing no acute process. Urine analysis was initially benign but culture did come back showing Klebsiella. So as well the patient may have had urinary tract infection that made her confused. Patient be discharged with a 5-day course of ciprofloxacin. Patient return to her fdc in stable condition. Weight / BMI Weight Weight: 63.3 kg Body Mass Index (BMI) 24.8 ABG / Lab / Microbiology Data 11/05/23 05:42 11/05/23 05:42 Laboratory: Laboratory Results - last 24 hr 11/05/23 12:05: POC Glucose 169 H 11/05/23 18:37: POC Glucose 212 H 11/06/23 02:24: POC Glucose 178 H 11/06/23 06:28: POC Glucose 173 H Microbiology: Microbiology 11/04/23 11:42 Urine Catheter - Catheter Urine Culture - Final Klebsiella pneumoniae sp pneum Radiography Diagnostic Testing: Radiology Impression Carotid Duplex 11/04/23 14:41 Interpretation Summary Mild (<50%) stenosis right extracranial internal carotid. Mild (<50%) stenosis left extracranial internal carotid. Patent and antegrade vertebrals bilaterally. Limited due to calcific shadowing bilateral. Ordering Physician: Amarilis Spence Referring Physician: Jose Bashir Performed By: Nelly Eugene T Echocardiogram 11/04/23 14:41 Interpretation Summary The estimated ejection fraction is 65 %. Trivial mitral valve insufficiency. The left atrium is mildly enlarged. Diastolic function is indeterminate. Ordering Physician: Amarilis Spence Performed By: Sam Fishman, [facility] Brain MRI 11/05/23 14:41 IMPRESSION: Atrophy and moderate periventricular white matter ischemic changes without evidence for acute infarct. Cannot definitively exclude possibility of coexisting NPH. Electronically Signed: Espinoza Saucedo MD at 18:29 EDT , D/C Instructions Discharge Diet: 2000 Calorie Control Diet Meaningful Use Info Meaningful Use Meaningful Use Diagnoses (Choose all that apply): None applicable Ischemic Stroke Statin Dosing Therapy Reference: STATIN DOSE THERAPY REFERENCE: * Patients > 75 years receive moderate or high dose statin therapy. * Patients 75 years or YOUNGER should receive HIGH intensity statin dose unless contraindicated. You will be required to document reason for non-treatment if statin daily dose does not meet guidelines. HIGH DOSE STATIN THERAPY DAILY Atorvastatin > than or = to 40 mg Rosuvastatin > than or = to 20 mg Amlodipine + Atorvastatin > than or = to 2.5/40 mg Ezetimibe + Simvastatin 10/80 mg Simvastatin 80mg Discharge Plan Admission Admit Date/Time: 11/04/23 14:31 Primary Reason for Your Visit: UTI Attending Provider: John Garcia Primary Care Provider: Jose Bashir Consulting Providers: Sachin Le; Donnell Hernandez; Mónica Hung; Paola Pimentel; Sayda Meyer; Riky Oneil; Kimberly Tubbs; Kentrell Kaur; Josue Atwood; Maurisio Florian; Mary Miranda; Vernon Krause; Miguelina Garcia; Nolan Wilson; Shayna Romeo; Andrew Logan; Mikki Farah; Pete Becerril; Lore Aguillon; Moody Romero; Amarilis Spence Discharge Orders/Prescriptions Prescriptions: New ciprofloxacin HCl 500 mg tablet 500 mg PO Q12H Qty: 10 0RF Continued amlodipine 5 mg tablet 10 mg PO DAILY tramadol 50 mg tablet 50 mg PO Q8H PRN (Reason: pain) losartan [Cozaar] 100 mg tablet 100 mg PO DAILY tamsulosin 0.4 mg capsule 0.4 mg PO QHS dicyclomine 10 mg capsule 10 mg PO Q6H PRN (Reason: pain) Qty: 60 2RF glucagon 1 mg recon soln 1 mg subcut Q20M PRN (Reason: hypoglycemia) Rx Instructions: until target blood sugar attained dextrose [Glucose Gel] 40 % gel 15 g PO Q15M PRN (Reason: hypoglycemia) Rx Instructions: until symptoms of low blood sugar are controlled hydralazine 25 mg tablet 25 mg PO TID loperamide [Anti-Diarrheal (loperamide)] 2 mg capsule 2 mg PO Q6H PRN (Reason: loose stool) lidocaine 4 % adhesive patch,medicated 1 patch topical QDAY PRN (Reason: pain) metformin 500 MG tablet 500 mg PO BID levetiracetam 500 MG tablet 500 mg PO BID cyanocobalamin (vitamin B-12) 500 MCG tablet 500 mcg PO DAILY@0800 ferrous sulfate 325 MG tablet 325 mg PO DAILY omeprazole 20 MG capsule 20 mg PO DAILY mirtazapine 15 MG tablet 7.5 mg PO QHS geriatric [id number]-[id number] 1 EACH tablet 1 ea PO DAILY cholecalciferol (vitamin D3) 1,000 UNIT tablet 1,000 unit PO DAILY biotin 5 MG tablet 5 mg PO DAILY insulin glargine 100 UNITS/ML insulin pen 10 units subcut QHS calcium carbonate-vitamin D3 1 EACH tablet,chewable 1 ea PO DAILY acetaminophen 500 mg Tablet 1,000 mg PO TID Referrals / Follow Up: Jose Bashir MD [Primary Care Provider] - Within 2 Weeks Disposition Disposition (needs filled in before D/C Order can be placed): NonSkilled NH/Intermed Care Charges/Coding Visit Charges Inpatient E&M: 27994 Disch Hosp >30min
--- NOTE | 2023-11-06 11:50 | CASEMGMT ---
Patient discharged back to [facility] under intermediate level of care. Physicians will transport patient via cot. Lore CORONADO
--- NOTE | 2023-11-06 12:20 | CASEMGMT ---
Discharge Planning Discharge orders, signed med list, and transport time sent to [place] [facility] [place] via [facility]. Physicians will transport patient by cot at 2p. Nursing, SW, and patients son (Dylan) updated. Sindi Golmdan DC Planning Asst.
--- NOTE | 2023-11-06 12:23 | CASEMGMT ---
Met with patient to complete MATTHEWS form. MATTHEWS form explained to patient who voiced understanding and signed form. Original form placed in pt?s chart and copy provided to patient. Sindi Goldman, Discharge Planning Asst
[2023-11-06 12:51] LABS: Bedside Glucose 272 mg/dL (74-106)
[2023-11-06] MEDS: Insulin Lispro 100 UNIT/ML INSULN.PEN SC (12:57)
--- NOTE | 2023-11-06 13:27 | NURSING ---
Report called to [facility]
[2023-11-06 15:43] VITALS: BMI 24.8
== END 2023-11-06 11:40 | disposition intermediate care facility (04) ==
LOC: ED 14:42 → PCU 17:58
PROVIDERS: Admitting Provider Internal Medicine; Emergency Provider Emergency Medicine; PCP Family Medicine
DX: N39.0 Urinary tract infection, site not specified (principal); I48.91 Unspecified atrial fibrillation; G40.909 Epilepsy, unspecified, not intractable, without status epilepticus; I63.233 Cerebral infarction due to unspecified occlusion or stenosis of bilateral carotid arteries; E11.9 Type 2 diabetes mellitus without complications; Z79.4 Long term (current) use of insulin; I10 Essential (primary) hypertension; E87.1 Hypo-osmolality and hyponatremia; G89.29 Other chronic pain; Z87.891 Personal history of nicotine dependence; D64.9 Anemia, unspecified; Z79.84 Long term (current) use of oral hypoglycemic drugs; R41.82 Altered mental status, unspecified; H53.8 Other visual disturbances; Z79.899 Other long term (current) drug therapy; R47.89 Other speech disturbances; N31.9 Neuromuscular dysfunction of bladder, unspecified; Z86.711 Personal history of pulmonary embolism
CPT/HCPCS: 36415; 51702; 70496; 70498; 70551; 71045; 80048; 80053; 80061; 80076; 81001; 82607; 82746; 82962; 83036; 83735; 84443; 84484; 85025; 85610; 85730; 87077; 87086; 87088; 87186; 92523; 93005; 93306; 93880; 94762; 96365; 96366; 96375; 97162; 97166; 97530; 97535; 97802; 99221; 99285; J7030; J7040; Q9967; G0378; J2405

== ENCOUNTER 2023-11-08 21:42 | Emergency (ER) | payer MEDICARE, MEDICAID, SELFPAY ==
[2023-11-08 21:46] VITALS: BP 147/103; PULSE 107; RESP 20; TEMP 36.8; O2SAT 99
[2023-11-08 21:49] VITALS: BP 147/103; PULSE 107; RESP 20; TEMP 36.8; O2SAT 99
--- NOTE | 2023-11-08 22:35 | EKG12_ITS ---
Test Reason : Blood Pressure : / mmHG Vent. Rate : 101 BPM Atrial Rate : 000 BPM P-R Int : 000 ms QRS Dur : 114 ms QT Int : 348 ms P-R-T Axes : 000 013 073 degrees QTc Int : 451 ms Atrial fibrillation with rapid ventricular response with premature ventricular or aberrantly conducte d complexes Possible Inferior infarct , age undetermined Abnormal ECG Confirmed by TYLER CONLEY, PARTH ([id number]), senior editor ROSIE FELDMAN ([id number]) on 11/12/2023 2:02:16 PM Referred By: Confirmed By:PARTH SCOTT MD
[2023-11-08 22:49] VITALS: BP 150/95; PULSE 102; RESP 20; TEMP 36.8; O2SAT 97
[2023-11-08] MEDS: 0.9% Normal Saline (1000mL) 1,000 ML 999 ML IV (22:56)
[2023-11-08 22:58] LABS: Absolute Lymphocyte Count 1.53 X10^3/uL (0.83-4.51); Basophil# 0.08 X10^3/uL; Basophil% 1.1 % (0-1); Hematocrit 26.8 % (37-47); Hemoglobin 9.4 g/dL (12.0-15.0); Lymphocyte # 1.53 X10^3/ul (0.83-4.51); Lymphocyte % 21.6 % (19-41); Mean Corp Hgb Conc 35.1 g/dL (32-36); Mean Corpuscular Hgb 37.9 pg (27.0-32.0); Mean Corpuscular Volume 108.1 fL (81-99); Mean Platelet Vol. 11.1 fl (6.2-12.0); Monocyte# 0.45 X10^3/uL; Monocyte% 6.3 % (0-10); NRBC Flagged by Analyzer 0 % (0-5); Neutrophil # 4.99 X10^3/uL (2.7-7.7); Neutrophil % 70.4 % (47-70); Platelet Count 297 K/mm3 (150-450); RBC Distribution Width CV 12.6 % (11.6-14.6); RBC Distribution Width SD 49.6 fl (35.1-43.9); Red Blood Count 2.48 M/mm3 (4.2-5.4); White Blood Count 7.1 K/mm3 (4.4-11.0)
[2023-11-08 23:00] VITALS: BP 150/95; PULSE 102; RESP 20; TEMP 36.8; O2SAT 99
[2023-11-08 23:08] LABS: International Normalized Ratio 1.4; Prothrombin Time (Protime)PT. 17.5 SECONDS (11.7-14.9)
[2023-11-08 23:17] LABS: AST(SGOT) 11 U/L (15-37); Alanine Aminotransfer ALT/SGPT 17 U/L (13-56); Albumin, Serum 3.6 g/dL (3.2-5.0); Alkaline Phosphatase 60 U/L (45-117); Anion Gap 8 (5-15); BUN 23 mg/dL (7-18); BUN/Creat Ratio 25.4 RATIO (10-20); Calcium,Total 9.9 mg/dL (8.5-10.1); Chloride 95 mmol/L (98-107); Creatinine, Serum 0.91 mg/dL (0.55-1.02); EST Glomerular Filtration Rate 62 mL/min (>60); Est Glom Filt Rate - Afr Amer 76 mL/min (>60); Globulin 3.5 g/dL (2.2-4.2); Glucose 239 mg/dL (74-106); Potassium 4.2 mmol/L (3.5-5.1); Protein, Total 7.1 g/dL (6.4-8.2); Sodium Level 130 mmol/L (136-145); Troponin-I HS 8 pg/mL (3.0-54.0)
[2023-11-08 23:18] LABS: Lactic Acid 1.1 mmol/L (0.4-1.9)
--- NOTE | 2023-11-08 23:29 | EX.ED.DYSGE1 ---
HPI History of Present Illness Chief Complaint: Neuro S/Sx Narrative Narrative: Patient is a 88-year-old female past medical history peripheral vascular disease, depression, neurogenic bladder, diabetes, hypertension, seizures who presented to the emergency department chief complaint of altered mental status. History of present illness was obtained from nursing staff at bedside as well as the nursing facility as they called and obtained information. According to them she recently had an admission here had a full stroke workup and was diagnosed with a urinary tract infection and had very similar symptoms that she was experiencing today. 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 They noted that today she was not acting herself was having odd speech which prompted them to have her sent back here for further evaluation management. [facility] Medical History PVD (peripheral vascular disease) Osteoarthritis History of pulmonary embolism Chronic back pain Anemia Depression Neurogenic bladder Urinary retention Hearing impairment Wears glasses Wears dentures Breast CA Diabetes Arthritis Post-menopausal Injury of back Former smoker History of edema Hypertension Seizures Uses walker Home Medications ?Medication ?Instructions ?Recorded ?Last Taken ?Type biotin 5 mg tablet 5 mg PO DAILY supplement 10/05/19 Unknown History calcium carbonate 600 mg-vitamin 1 ea PO DAILY supplement 10/05/19 Unknown History D3 10 mcg (400 unit) chewable tablet cholecalciferol (vitamin D3) 25 1,000 unit PO DAILY supplement 10/05/19 Unknown History mcg (1,000 unit) tablet cyanocobalamin (vitamin B-12) 500 500 mcg PO DAILY@0800 supplement 10/05/19 Unknown History mcg tablet ferrous sulfate 325 mg (65 mg 325 mg PO DAILY supplement 10/05/19 Unknown History iron) tablet geriatric [id number] 1 ea PO DAILY supplement 10/05/19 Unknown History levetiracetam 500 mg tablet 500 mg PO BID seizure 10/05/19 Unknown History metformin 500 mg tablet 500 mg PO BID 10/05/19 Unknown History mirtazapine 15 mg tablet 7.5 mg PO QHS depression 10/05/19 Unknown History omeprazole 20 mg capsule,delayed 20 mg PO DAILY GERD 10/05/19 Unknown History release amlodipine 5 mg tablet 10 mg PO DAILY bp 04/04/20 Unknown History acetaminophen 500 mg tablet 1,000 mg PO TID pain 09/29/20 Unknown History tramadol 50 mg tablet 50 mg PO Q8H PRN pain 04/12/23 Unknown History losartan 100 mg tablet (Cozaar) 100 mg PO DAILY 09/10/23 Unknown History tamsulosin 0.4 mg capsule 0.4 mg PO QHS 09/10/23 Unknown History dextrose 40 % oral gel (Glucose 15 g PO Q15M PRN hypoglycemia 10/16/23 Unknown History Gel) glucagon 1 mg solution for 1 mg subcut Q20M PRN hypoglycemia 10/16/23 Unknown History injection hydralazine 25 mg tablet 25 mg PO TID 10/16/23 Unknown History lidocaine 4 % topical patch 1 patch topical QDAY PRN pain 10/16/23 Unknown History loperamide 2 mg capsule 2 mg PO Q6H PRN loose stool 10/16/23 Unknown History (Anti-Diarrheal (loperamide)) ciprofloxacin HCl 500 mg tablet 500 mg PO Q12H #10 tabs 11/06/23 Unknown Rx apixaban 5 mg tablet (Eliquis) 5 mg PO BID 11/08/23 Unknown History ondansetron HCl 4 mg tablet 4 mg PO Q6H PRN nausea and vomiting 11/08/23 Unknown History Allergy/AdvReac Type Severity Reaction Status Date / Time doxycycline (From Vibramycin) Allergy PT UNSURE Verified 11/08/23 21:50 OF REACTION gabapentin Allergy PT UNSURE Verified 11/08/23 21:50 OF REACTION Surgical History History of left knee replacement History of left mastectomy Social History Smoking Status: Former smoker ROS ROS ED ROS Narrative Constitutional: Denies any fevers, chills, headaches, lightness, dizziness Eyes: States that she keeps seeing a chart and keeps referencing that she seen a chart Cardiovascular: Denies chest pain or palpitations Respiratory: Denies coughing wheezing shortness of breath Abdomen: Denies abdominal pain nausea vomit diarrhea : Denies any urinary symptoms Neurological: Denies numbness, weakness, tingling Musculoskeletal: Denies back pain Skin: Denies rashes or lesions EXAM Physical Exam Narrative Exam Narrative: General: Patient lying in bed rest comfortably did not appear to be acute distress Head: Atraumatic, normocephalic Eyes: PERRL bilaterally, EOMI bilateral, no conjunctival injection noted Neck: Soft, supple, trach midline Cardiovascular: Regular rate and rhythm no murmurs gallops rubs noted Respiratory: Clear to auscultation bilaterally no rales rhonchi or wheezes noted Abdomen: Soft, nondistended, no tenderness to palpation, bowel sounds present x 4 Extremities: +4/5 strength noted in the bilateral upper and lower extremities, radial pulses +2/4 in the bilateral extremities, Neurological: Patient is following commands she knew that she was at the hospital she thought she was at [facility] was confused on the year and what seasonal urine Skin: Warm, dry, intact Const Vital Signs: 11/08/23 21:46 11/08/23 21:49 11/08/23 22:49 Temperature 98.2 F 98.2 F 98.2 F Temperature Source Oral Oral Oral Pulse Rate 107 H 107 H 102 H Respiratory Rate 20 H 20 H 20 H Blood Pressure 147/103 H 147/103 H 150/95 H Blood Pressure Mean 117 117 113 Pulse Ox 99 99 97 Oxygen Delivery Method Room Air Room Air Room Air 11/08/23 23:00 11/08/23 23:14 11/09/23 00:00 Temperature 98.2 F 98.2 F Temperature Source Oral Oral Pulse Rate 102 H 115 H Respiratory Rate 20 H 19 H Blood Pressure 150/95 H 165/103 H Blood Pressure Mean 113 123 Pulse Ox 99 95 Oxygen Delivery Method Room Air Room Air Room Air 11/09/23 01:00 11/09/23 02:00 11/09/23 03:00 Temperature 98.8 F 97.9 F Temperature Source Oral Oral Pulse Rate 107 H 109 H 89 Respiratory Rate 17 18 16 Blood Pressure 171/91 H 151/97 H 150/70 H Blood Pressure Mean 117 115 96 Pulse Ox 94 95 96 Oxygen Delivery Method Room Air Room Air Room Air 11/09/23 05:00 Temperature Temperature Source Pulse Rate 88 Respiratory Rate 14 Blood Pressure 158/88 H Blood Pressure Mean 111 Pulse Ox 97 Oxygen Delivery Method Room Air MDM MDM MDM Narrative Medical decision making narrative: Patient is a 88-year-old female who presented to the emergency department chief complaint of altered mental status. Patient will have a workup performed here on the differential diagnose includes but not limited to intracranial hemorrhage, pneumonia, UTI, ACS. Once workup is obtained reviewed she will be reevaluated. Patient given 30 cc/kg bolus of IV fluids which was ordered at 2235. Patient CBC was largely unremarkable no evidence leukocytosis white blood count normal at 7.1, hemoglobin stable 9.4, platelet count normal at 397. Patient's INR normal at 1.4, sodium was 130, potassium normal at 4.2, creatinine normal at 0.91. Patient's glucose was elevated to 39, anion gap normal at 8, AST and ALT were normal at 11 and 17 respectively. Patient's urinalysis showed positive nitrates 25 leukocyte esterase with 1+ bacteria this will be sent for culture she will be given Rocephin for a urinary tract infection. On reevaluation the patient she was noted to have a seizure therefore she was given 2 mg of Ativan which caused a seizure to dissipate. She was given Keppra as she is on this orally twice a day according to her record. Patient is becoming severely agitated therefore she was given Haldol 2.5 mg. Later on she was still agitated therefore she was given another 2.5 mg. Patient's chest x-ray reviewed and showed no acute intrathoracic abnormalities stable borderline cardiomegaly. Patient CT head and brain without contrast showed no acute intracranial pathology she has diffuse involutional changes and chronic ischemic small vessel white matter disease. At this point in time do believe the patient warrants admission for her altered mental status, hallucinations, UTI, seizure. Patient's case will be discussed with hospitalist for admission. At this point time do believe the patient will warrant admission to the hospital called and discussed case with Dr. Heredia and after reviewing the case he states that he believes the patient would be best suited for being worked up for breakthrough seizures with continuous EEG monitoring as we do not have this here and for potential normal pressure hydrocephalus as this was mentioned in a previous note. Called [facility] And they did not have any beds available. We called [facility] and I spoke with Dr. Mckee who states that he will accept patient for admission. I called the patient's son back and notified him that she will be transferred to [facility] in [facility]. He was agreeable with this. All question concerns were answered. Lab Data Labs: Laboratory Results - last 24 hr 11/08/23 11/08/23 22:40 23:30 WBC 7.1 RBC 2.48 L Hgb 9.4 L Hct 26.8 L MCV 108.1 H MCH 37.9 H MCHC 35.1 RDW Std Deviation 49.6 H RDW Coeff of Mariaelena 12.6 Plt Count 297 MPV 11.1 Immature Gran % (Auto) 0.600 Neut % (Auto) 70.4 H Lymph % (Auto) 21.6 Power % (Auto) 6.3 Eos % (Auto) 0.0 Baso % (Auto) 1.1 H Absolute Neuts (auto) 5.0 Absolute Lymphs (auto) 1.53 Nucleated RBC % 0 PT 17.5 H INR 1.4 APTT 33.0 Sodium 130 L Potassium 4.2 Chloride 95 L Carbon Dioxide 27.0 Anion Gap 8 BUN 23 H Creatinine 0.91 Est GFR (MDRD) Af Amer 76 Est GFR (MDRD) Non-Af 62 BUN/Creatinine Ratio 25.4 H Glucose 239 H Lactic Acid 1.1 Calcium 9.9 Total Bilirubin 0.50 AST 11 L ALT 17 Alkaline Phosphatase 60 Troponin I High Sens 8 Total Protein 7.1 Albumin 3.6 Globulin 3.5 Albumin/Globulin Ratio 1.0 Urine Color Yellow Urine Clarity Sl. Cloudy Urine pH 6.0 Ur Specific Comstock 1.010 Urine Protein 500 H Urine Glucose (UA) 50 H Urine Ketones Negative Urine Occult Blood 10 H Urine Nitrite Positive H Urine Bilirubin Negative Urine Urobilinogen Normal Ur Leukocyte Esterase 25 H Urine RBC 0 SEEN Urine WBC 0-5 SEEN Ur Squamous Epith Cells 0-5 SEEN Ur Transition Epith Cell 0-5 SEEN Amorphous Sediment 1+ Urine Bacteria 1+ Urine Mucus 0 SEEN Radiography Diagnostic Testing: Clinical Impression(s) from Imaging Studies Chest X-Ray 11/08/23 23:50 IMPRESSION: 1. No acute intrathoracic abnormality. 2. Stable borderline cardiomegaly. Electronically Signed: Lucy Francis MD at 1:16 EDT , Brain CT 11/09/23 02:13 IMPRESSION: 1. No evidence of acute intracranial pathology. 2. Diffuse involutional changes and chronic ischemic small vessel white matter disease. 3. AIDOC was utilized to assist in identifying pertinent positive findings. Electronically Signed: Tenzin Collado MD at 4:33 EDT , Discharge Plan Triage Chief Complaint: Neuro S/Sx ED Provider: Mane Cantu Dx/Rx/DC Orders Clinical Impression: Breakthrough seizure, Altered mental status Prescriptions: No Action amlodipine 5 mg tablet 10 mg PO DAILY tramadol 50 mg tablet 50 mg PO Q8H PRN (Reason: pain) losartan [Cozaar] 100 mg tablet 100 mg PO DAILY tamsulosin 0.4 mg capsule 0.4 mg PO QHS glucagon 1 mg recon soln 1 mg subcut Q20M PRN (Reason: hypoglycemia) Rx Instructions: until target blood sugar attained dextrose [Glucose Gel] 40 % gel 15 g PO Q15M PRN (Reason: hypoglycemia) Rx Instructions: until symptoms of low blood sugar are controlled hydralazine 25 mg tablet 25 mg PO TID loperamide [Anti-Diarrheal (loperamide)] 2 mg capsule 2 mg PO Q6H PRN (Reason: loose stool) lidocaine 4 % adhesive patch,medicated 1 patch topical QDAY PRN (Reason: pain) metformin 500 MG tablet 500 mg PO BID levetiracetam 500 MG tablet 500 mg PO BID cyanocobalamin (vitamin B-12) 500 MCG tablet 500 mcg PO DAILY@0800 ferrous sulfate 325 MG tablet 325 mg PO DAILY omeprazole 20 MG capsule 20 mg PO DAILY mirtazapine 15 MG tablet 7.5 mg PO QHS geriatric [id number] 1 EACH tablet 1 ea PO DAILY cholecalciferol (vitamin D3) 1,000 UNIT tablet 1,000 unit PO DAILY biotin 5 MG tablet 5 mg PO DAILY calcium carbonate-vitamin D3 1 EACH tablet,chewable 1 ea PO DAILY acetaminophen 500 mg Tablet 1,000 mg PO TID ciprofloxacin HCl 500 mg tablet 500 mg PO Q12H Qty: 10 0RF ondansetron HCl 4 mg tablet 4 mg PO Q6H PRN (Reason: nausea and vomiting) Eliquis 5 mg tablet 5 mg PO BID Primary Care Provider: Jose Bashir Referrals: Jose Bashir MD [Primary Care Provider] - Print Language: Guyanese Disposition Disposition: DC/Tx to Another Type of HCF
[2023-11-08 23:35] LABS: Mucous, Urine 0 SEEN /hpf (<or=2+); Red Blood Cells-Urine 0 SEEN /hpf (0-5)
[2023-11-08 23:39] LABS: Color, Urine Yellow (Yellow); Glucose, Dipstick 50 mg/dl (Normal); Ketone-Dipstick Negative (Negative); Leukocyte Esterase-Dipstick 25 /ul (Negative); Nitrite-Dipstick Positive (Negative); Occult Blood-Urine 10 /ul (Negative); Protein-Dipstick 500 mg/dl (Negative); Urine Bilirubin Dipstick Negative (Negative); Urine Clarity Sl. Cloudy (Clear); Urine Urobilinogen Normal (Normal)
[2023-11-08 23:47] LABS: Bacteria 1+ /hpf (None Seen); Squamous Epithelial Cells - UA 0-5 SEEN /hpf (5-10); Transitional Epithelial - Ur 0-5 SEEN /hpf (0-5); White Blood Cells 0-5 SEEN /hpf (0-5)
[2023-11-08 23:48] LABS: Amorphous Sediment 1+
--- NOTE | 2023-11-08 23:50 | RAD_ITS ---
EXAM: XR CHEST, 2 VIEWS CLINICAL INDICATION: ams TECHNIQUE: Frontal and lateral views of the chest. COMPARISON: November 04, 2023. FINDINGS: LUNGS AND PLEURAL SPACES: Unremarkable. No pneumothorax. No infiltrate or effusion. HEART: Stable borderline heart size. MEDIASTINUM: Stable mediastinal contours. BONES/JOINTS: See above. SOFT TISSUES: Surgical clips along the left chest wall are stable. RAD/Chest PA and Lateral IMPRESSION: 1. No acute intrathoracic abnormality. 2. Stable borderline cardiomegaly. Electronically Signed: Lucy Francis MD at 1:16 EDT ,
[2023-11-09] VITALS (8 sets, daily range): BP systolic 144–176; BP diastolic 70–103; PULSE 77–115; RESP 12–19; TEMP 36.4–37.1; O2SAT 94–100
[2023-11-09] MEDS: 0.9% Normal Saline (1000mL) 1,000 ML 999 ML IV ×2 (00:10→01:57)
[2023-11-09] MEDS: LORazepam 2 MG/ML Syringe IV (01:30)
--- NOTE | 2023-11-09 01:33 | ED.RN ---
This RN into room to give report to Niharika MEIER. Pt has fixed gaze to L side with jerking movements. This RN notified Dr. Cantu, verbal order given for Ativan 2mg IVP. Pt sx resolved shortly after given ativan.
[2023-11-09] MEDS: Ceftriaxone 1 GM/50 ML BAG IV (01:57)
--- NOTE | 2023-11-09 02:13 | CT_ITS ---
EXAM: CT HEAD WITHOUT INTRAVENOUS CONTRAST CLINICAL INDICATION: ams TECHNIQUE: Multiple axial images were obtained of the head without intravenous contrast. CTDIvol = ( 44.99 ) mGy, DLP = ( 2132.15 ) mGycm This CT exam was performed using one or more of the following dose reduction techniques: automated exposure control, adjustment of the mA and/or kV according to patient size, and/or use of iterative reconstruction technique. COMPARISON: No relevant prior studies available. FINDINGS: BRAIN AND EXTRA-AXIAL SPACES: Periventricular small vessel ischemic change. No midline shift or hydrocephalus. Diffuse parenchymal atrophy. Posterior fossa structures are unremarkable. Basal cisterns are patent. No acute intracranial hemorrhage, mass effect or edema. No evidence of acute cortical stroke. BONES/JOINTS: Unremarkable. No discrete lytic or blastic abnormalities. VASCULATURE: Atherosclerotic calcifications of the carotid siphons and vertebrobasilar arteries. SINUSES: Unremarkable as visualized. Clear. MASTOID AIR CELLS: Visualized sinuses and mastoid air cells are clear. ORBITS: Visualized globes, extraocular muscles, optic nerves and retrobulbar fat appear unremarkable. CT/Brain/Head without Contrast IMPRESSION: 1. No evidence of acute intracranial pathology. 2. Diffuse involutional changes and chronic ischemic small vessel white matter disease. 3. AIDOC was utilized to assist in identifying pertinent positive findings. Electronically Signed: Tenzin Collado MD at 4:33 EDT ,
[2023-11-09] MEDS: Haloperidol Lactate 5 MG/ML Vial 2.5 MG IV ×2 (02:29→02:58)
[2023-11-09] MEDS: levETIRAcetam IV 1,000 MG/100 ML BAG 400 MG IV (02:33)
--- NOTE | 2023-11-09 02:52 | ED.RN ---
Pt fluids paused due to patient agitation and restlessness.
--- NOTE | 2023-11-09 09:33 | ED.RN ---
family updated on transfer
== END 2023-11-09 10:14 | disposition other institution (70) ==
PROVIDERS: Emergency Provider Emergency Medicine; PCP Family Medicine; Visit Provider Emergency Medicine
DX: G40.909 Epilepsy, unspecified, not intractable, without status epilepticus (principal); E11.65 Type 2 diabetes mellitus with hyperglycemia; E11.51 Type 2 diabetes mellitus with diabetic peripheral angiopathy without gangrene; I10 Essential (primary) hypertension; Z87.891 Personal history of nicotine dependence; R41.82 Altered mental status, unspecified; R45.1 Restlessness and agitation; Z79.01 Long term (current) use of anticoagulants; N39.0 Urinary tract infection, site not specified; R44.3 Hallucinations, unspecified; Z79.899 Other long term (current) drug therapy
CPT/HCPCS: 70450; 71046; 80053; 81001; 83605; 84484; 85025; 85610; 85730; 87040; 87086; 87631; 93005; 96361; 96365; 96366; 96367; 96375; 96376; 99285; J7030; A4216

== ENCOUNTER → 2023-11-26 | Outpatient (CLI) | payer MEDICARE, MEDICAID, SELFPAY ==
[2023-11-26] VITALS (14 sets, daily range): BP systolic 134–161; BP diastolic 71–96; PULSE 93–103; RESP 14–22; TEMP 36.3; O2SAT 94–99; BMI 20.9
--- NOTE | 2023-11-26 | BMB_PTH ---
PATIENT: GONZALO VEGA LOC: CT U#:[id number] AGE/SX: 88/F ROOM: RE11/26/[address]: Dr. Gumaro Tse MD : 1935 BED: DIS: 11/26/2023 SPEC #: [id number] RECD: 11/26/23 11:02 STATUS: RAZIA FARZANA #: [id number] RANDI: 11/26/23 00:[address]: Gumaro Tse DEPT: BONE MARROW RECD BY: Leticia Tiwari ENTERED: 11/26/23 11:02 SP TYPE: BMB JOSE DR: Dr. 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 Hypercellular bone marrow. Decreased stainable iron. See comment. 12/02/2023 COMMENT A small monoclonal B- cell population (approximately 5%) consistent with CLL/SLL was identified in the flow cytometric analysis. B. Immunohistochemistry ([id number]) shows one microscopic lymphoid aggregate with polytypic immunohistochemical profile. Clinical correlation is suggested. The complete flow analysis is viewable in the patient's EMR. Case has been reviewed in consultation with Dr. Lim who concurs with the above diagnosis. IDC:SJ BONE MARROW STUDY Slides are reviewed. CBC DATE: 11/26/23 WBC 2.9; RBC 2.15; HGB 8.3; HCT 24.5; MCV 114.0; RDW 13.5; PLTS 215,000 SEGS 45.2%; LYMPHS 45.8%; MONOS 7.3%; EOS 0%; BASOS 1.4% PERIPHERAL SMEAR: Submitted. RBC: Macrocytic anemia WBC: Occasional reactive lymphocyte present PLTS: Normomorphic BONE MARROW ASPIRATE DIFFERENTIAL: 200 cell count. Blasts % (normal 0-2): 2 Promyelocytes % (normal 1-5): 3 Myelocytes and metamyelocytes % (normal 17-41): 22 Bands and Segs % (normal 15-32): 27 Eos % (normal 1-6): 2 Basos % (normal 0-1): 1 Monocytes % (normal 0-4): 2 Erythroid Precursors % (normal 17-35): 28 Lymphocytes % (normal 7-13): 13 Plasma Cells % (normal 0-2): 2 ASPIRATE FINDINGS: Site: Not specified Spicular Cellular M/E ratio: 2.0 (Normal 1.5 - 4.0) Megakaryocytes: Adequate Erythropoiesis: Normoblastic Granulopoiesis: Progressive maturation CORE BIOPSY FINDINGS: Site: Not specified Adequacy: Inadequate Cellularity %: Not applicable M/E ratio: Not applicable Megakaryocytes: Occasional maturing cells present Bony trabeculae: Occasional maturing cells present Granulomas: Occasional maturing cells present Lymphoid aggregate(s): Occasional maturing cells present Atypical infiltrate(s): Occasional maturing cells present ASPIRATE CLOT FINDINGS: Site: Not specified Marrow Particles: Many Cellularity %: 45% M/E ratio: Within normal limit Megakaryocytes: Adequate Granuloma(s): Not present Lymphoid aggregate(s): Two small lymphoid aggregates present Atypical infiltrate(s): Not present SPECIAL STAINS (with matched controls): Iron: Rare stainable iron Reticulin: Within normal limit PAS: Highlights myeloid elements and megakaryocytes. BONE MARROW GROSS A - Received is a container labeled with the patient's name and designated Bone marrow core. The specimen consists of multiple fragments of [place] bone measuring 0.1 x 0.1cm. The specimen is totally submitted in one cassette after decalcification. B - Received labeled with the patient's name and designated Bone marrow clot is a specimen that consists of approximately 7.0 ml of bloody fluid that on filtration yields multiple minute fragments of blood clots measuring in aggregate 2.5 x 2.0 x 0.2cm. The specimen is totally submitted in one cassette. C - Also received are 10 unstained and 1 peripheral stained slides. The unstained slides are submitted for appropriate staining. Also received are 2 green top tubes which are sent to our reference lab for flow, cytogenetics, AML, MDS. SJ. 11/26/2023 TC:? 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
--- NOTE | 2023-11-26 | IMM_PTH ---
PATIENT: GONZALO VEGA LOC: CT U#:[id number] AGE/SX: 88/F ROOM: RE11/26/[address]: Dr. Gumaro Tse MD : 1935 BED: DIS: 11/26/2023 SPEC #: [id number] RECD: 11/28/23 11:17 STATUS: RAZIA REQ #: [id number] RANDI: 11/26/23 00:[address]: Gumaro Tse DEPT: IMMUNOHISTOCHEMISTRY RECD BY: Cb Novak ENTERED: 11/28/23 11:18 SP TYPE: IMMUNO OTHR DR: Dr. Jose Bashir MD Tissues: B - Bone marrow of iliac crest Procedures: BCL-2 (add) BCL-6 (add) CD10 (add) CD138 (add) CD15 (add) CD20 (add) CD23 (add) CD3 (add) CD30 (add) CD43 (add) CD45 (add) CD5 (add) CD79A (add) CYCLIN (add) KAPPA (add) KI-67 (add) LAMBDA (add) MPO (add) P53 (add) MUM1 (add) C-MYC (add) Pankeratin (initial) PHYSICIAN & INSTITUTION [place] [address] SPECIMEN INFORMATION: Tissue Source: B- Bone marrow clot Clinical Info: Anemia, leukopenia Specimen Number: [id number] CPT code: [id number] METHODOLOGY: Deparaffinized sections of prefer/formalin-fixed tissue or PAP/DQ stained slides are incubated with monoclonal/polyclonal antibodies/oligonucleotide probes. Localization is made via biotin free immunoperoxidase method. Appropriate controls are performed and reacted as expected. Results on target cell population are indicated in the following table: RESULTS: ANTIBODY / CLONE RESULT Block B AE1-3 (AE1/AE3/PCK26) negative CD3 (PS1) positive CD5 (SP10) positive CD20 (L26) positive CD43 (L60) positive CD45 (RP2/18) positive CD79a (11E3) negative CD138 (B-A38) negative [place] (polyclonal) negative Lambda (polyclonal) negative CD10 (56C6) negative CD15 (MMA) negative CD23 (1B12) negative CD30 (Morgan-H2) negative BCL-2 (bcl-2/100/D5) negative BCL-6 (XE649B/A8) negative [place] D1/BCL-1 (SP4) negative MUM1 (MRQ-43) negative C-MYC (Y69) negative MPO (polyclonal) positive P53 (DO-7) negative, null pattern Ki-67 (30-9) positive, moderate These tests were developed and their performance characteristics determined by [facility]. They may not have been cleared or approved by the U.S. Food and Drug Administration. The FDA has determined that such clearance or approval is not necessary. The above immunohistochemical/dualISH markers are ordered and reviewed by the Pathologist. INTERPRETATION: B. Bone marrow clot, bone biopsy: A single microscopic lymphoid aggregate polytypic IHC profile is present. COMMENT: Please correlate with FLOW results. AM.mr 12/02/2023
[2023-11-26 08:57] LABS: Absolute Lymphocyte Count 1.31 X10^3/uL (0.83-4.51); Absolute Neutrophil Count 1.3 X10^3/uL (2.0-7.7); Basophil# 0.04 X10^3/uL; Basophil% 1.4 % (0-1); Hematocrit 24.5 % (37-47); Hemoglobin 8.3 g/dL (12.0-15.0); Lymphocyte # 1.31 X10^3/ul (0.83-4.51); Lymphocyte % 45.8 % (19-41); Mean Corp Hgb Conc 33.9 g/dL (32-36); Mean Corpuscular Hgb 38.6 pg (27.0-32.0); Mean Platelet Vol. 11.9 fl (6.2-12.0); Monocyte# 0.21 X10^3/uL; Monocyte% 7.3 % (0-10); NRBC Flagged by Analyzer 0 % (0-5); Neutrophil # 1.29 X10^3/uL (2.7-7.7); Neutrophil % 45.2 % (47-70); Platelet Count 215 K/mm3 (150-450); RBC Distribution Width CV 13.5 % (11.6-14.6); RBC Distribution Width SD 55.9 fl (35.1-43.9); RET-HE 38.5 pg (30-35); Red Blood Count 2.15 M/mm3 (4.2-5.4); Reticulocyte Count 2.28 % (0.5-1.5); White Blood Count 2.9 K/mm3 (4.4-11.0)
[2023-11-26 09:03] LABS: Erythrocyte Sedimentation Rate 11 mm/hr (0-30)
[2023-11-26 09:12] LABS: International Normalized Ratio 1.3; Prothrombin Time (Protime)PT. 16.1 SECONDS (11.7-14.9)
[2023-11-26 09:13] LABS: Partial Thromboplast Time 30.9 Seconds (24.1-36.2)
[2023-11-26] MEDS: 0.9% Saline Lock 10 ML Syringe IV ×2 (09:14→09:41)
[2023-11-26] MEDS: Midazolam 2 MG/2 ML Syringe IV (09:37)
[2023-11-26] MEDS: fentaNYL 100 MCG/2 ML Ampul IV (09:40)
[2023-11-26 09:44] LABS: ALB/GLOB Ratio 1.1 RATIO (0.9-2.4); AST(SGOT) 11 U/L (15-37); Alanine Aminotransfer ALT/SGPT 22 U/L (13-56); Albumin, Serum 3.4 g/dL (3.2-5.0); Alkaline Phosphatase 52 U/L (45-117); Anion Gap 6 (5-15); BUN 17 mg/dL (7-18); BUN/Creat Ratio 21.2 RATIO (10-20); CRP < 2.90 mg/L (0.0-3.0); Calcium,Total 9.7 mg/dL (8.5-10.1); Chloride 104 mmol/L (98-107); EST Glomerular Filtration Rate 72 mL/min (>60); Est Glom Filt Rate - Afr Amer 87 mL/min (>60); Estimated Creatinine Clearance 48.96 ml/min; Ferritin 46 ng/mL (8-252); Globulin 3.2 g/dL (2.2-4.2); Glucose 163 mg/dL (74-106); Iron 73 ug/dL (50-170); Iron Binding Capacity,Total 280 ug/dL (250-450); LDH 142 U/L (84-246); Magnesium 1.2 mg/dL (1.6-2.6); PERCENT IRON SATURATION 26.1 % (15.0-55.0); Phosphorus 2.4 mg/dL (2.5-4.9); Potassium 4.1 mmol/L (3.5-5.1); Protein, Total 6.6 g/dL (6.4-8.2); Sodium Level 136 mmol/L (136-145)
[2023-11-26] MEDS: Lidocaine 2% (20 ml mdv) 20 ML Vial INFILT (09:54)
--- NOTE | 2023-11-26 11:45 | PRO.PCM_ITS ---
Procedure Report Date of Procedure: 11/26/23 Assessment & Plan Assessment/Plan (1) Leukopenia: QUALIFIERS: Leukopenia type: neutropenia Neutropenia type: unspecified Qualified Code(s): D70.9 - Neutropenia, unspecified PLAN: PROCEDURE: CT guided bone marrow biopsy and aspiration of the right iliac bone ORDERING PROVIDER: Dr. Tse INDICATION: Female, 88 years old. Leukopenia and anemia. PROVIDER: Emmy GANNON CONSENT: The risks, benefits, and alternatives to the procedure were explained to the patient. The specific risk of hemorrhage requiring further treatment or intervention was detailed and accepted. Follow-up instructions were discussed with the patient as well. Written informed consent was obtained. PRE-PROCEDURE SEDATION ASSESSMENT: Current history and physical dictated by referring physician and reviewed. No clinical changes since date of exam. Patient has a Mallampati Score of Class 1 and ASA Class of 3. PROCEDURAL SEDATION PROTOCOL: The Drugs used were: 1 mg Versed, IV, and 25 mcg Fentanyl, IV. The sedation time was: 34 minutes, starting at 9:37 AM and terminated at 10:11 AM. The procedural sedation protocol was independently monitored by the department nurse. RADIATION DOSAGE (Supplied By Facility): CTDIvol = 23.10 mGy, DLP = 325.66 mGy.cm Individualized dose optimization techniques were utilized. TECHNIQUE The patient was brought into the CT suite and placed in the prone position. An appropriate entry site was identified using CT guidance. The overlying skin was prepped with chlorhexidine and draped in the usual sterile fashion. 2% lidocaine was administered subcutaneously for local anesthesia. Under CT guidance, a bone marrow biopsy and bone marrow aspirate were performed of the right iliac bone using an 11-gauge bone marrow biopsy kit. Laboratory staff was present to prepare the specimen slides and transport the specimen to the laboratory for analysis. Hemostasis was obtained, and a sterile occlusive dressing was applied. The patient tolerated the procedure well without immediate complications. IMPRESSION: Successful CT guided bone marrow biopsy and aspiration of the right iliac bone as described. Procedural Sedation protocol utilized with independent monitoring by the depart ment nurse. Procedures Radiology Radiology CT Procedures: 07702 Dx bone marrow bx & aspir Multi Select Codes Radiology Radiology CT Procedures: 82509-90 CT guidance parenchymal tissue
[2023-12-17 12:48] LABS: Miscellaneous Lab Procedure SEE PATHOLOGY REPORT
[2023-12-17 12:49] LABS: Miscellaneous Lab Procedure 3 SEE PATHOLOGY REPORT; Miscellaneous Lab Procedure 4 SEE PATHOLOGY REPORT
== END | disposition home or self-care (01) ==
PROVIDERS: PCP Family Medicine; Referring Provider Internal Medicine Medical Oncology; Visit Provider Internal Medicine Medical Oncology
DX: Z01.818 Encounter for other preprocedural examination (principal); D64.9 Anemia, unspecified; D72.819 Decreased white blood cell count, unspecified
CPT/HCPCS: 38222; 36415; 77012; 80053; 82607; 82728; 82746; 83540; 83550; 83615; 83735; 84100; 85025; 85045; 85610; 85652; 85730; 86140; 88305; 88311; 88313; 88341; 88342; 99156; 99157; A4216

== ENCOUNTER 2024-01-02 07:44 | Outpatient (CLI) | payer MEDICARE, MEDICAID, SELFPAY ==
[2024-01-02 07:54] VITALS: BP 147/86; PULSE 90; RESP 16; TEMP 36.1; O2SAT 98
[2024-01-02 08:37] VITALS: BP 125/65; PULSE 89; RESP 16; TEMP 36; O2SAT 98
[2024-01-02 09:37] VITALS: BP 142/62; PULSE 76; RESP 16; TEMP 35.9
[2024-01-02] MEDS: Furosemide 40 MG/4 ML Vial IV (10:10)
[2024-01-02 10:45] VITALS: BP 141/71; PULSE 98; RESP 16; TEMP 35.9
[2024-01-02 11:45] VITALS: BP 138/68; PULSE 74; RESP 16; TEMP 36.1
[2024-01-02 12:23] VITALS: BP 138/74; PULSE 95; RESP 16
== END 2024-01-02 23:59 | disposition home or self-care (01) ==
LOC: MEDOUTP 07:44
PROVIDERS: PCP Family Medicine; Referring Provider Nurse Practitioner Family; Visit Provider Nurse Practitioner Family
DX: D46.9 Myelodysplastic syndrome, unspecified (principal)
CPT/HCPCS: 96374; 36415; 36430; 86644; 86850; 86900; 86901; 86920; 86922; J7040; P9016; A4216; J1940